=== PATIENT | male | born 1950 | race Caucasian/White ===

== ENCOUNTER → 2022-02-14 | Outpatient (CLI) | payer MEDICARE, SELFPAY | END | disposition home or self-care (01) | PROVIDERS: PCP Family Medicine; Referring Provider Internal Medicine Critical Care Medicine; Visit Provider Internal Medicine Critical Care Medicine | DX: R06.00 Dyspnea, unspecified (principal) ==

== ENCOUNTER → 2022-04-30 | Outpatient (CLI) | payer MEDICARE, SELFPAY ==
[2022-04-30 12:09] VITALS: PULSE 68; PULSE 73; PULSE 74; PULSE 82; PULSE 90; PULSE 91; PULSE 92; O2SAT 96; O2SAT 97; O2SAT 98
--- NOTE | 2022-05-01 11:01 | PCM.PSN.6M ---
PSN 6 Minute Walk Test 6 Minute Walk Test 6 Minute Walk Test: 6 Minute Walk Test PSN:6-Minute Walk Test Start: 04/30/22 12:09 Freq: Status: Active Protocol: RESP.6MINW Document 04/30/22 12:09 [facility] (Rec: 04/30/22 12:12 [facility] [id number]) 6 Minute Walk Test Date Performed 04/30/22 Time Performed 11:15 Height 5 ft 8 in Weight: 220 lb Weight in Pounds 220.[address]: Mendoza Lei Assistive device used: None Pre-test Oxygen Delivery Method Room Air Pulse Ox (%) 98 Pulse Rate (60-100 beats/min) 68 Dyspnea Jaime Scale (0-10) 1 1st minute Oxygen Delivery Method Room Air Pulse Ox (%) 97 Pulse Rate (60-100 beats/min) 74 Dyspnea Jaime Scale (0-10) 2 Number of Rests Taken 0 Reported Symptoms Increased Work of Breathing 2nd minute Oxygen Delivery Method Room Air Pulse Ox (%) 96 Pulse Rate (60-100 beats/min) 82 Dyspnea Jaime Scale (0-10) 2 Number of Rests Taken 0 Reported Symptoms Increased Work of Breathing 3rd minute Oxygen Delivery Method Room Air Pulse Ox (%) 96 Pulse Rate (60-100 beats/min) 90 Dyspnea Jaime Scale (0-10) 3 Number of Rests Taken 0 Reported Symptoms Increased Work of Breathing 4th minute Oxygen Delivery Method Room Air Pulse Ox (%) 96 Pulse Rate (60-100 beats/min) 92 Dyspnea Jaime Scale (0-10) 3 Number of Rests Taken 0 Reported Symptoms Increased Work of Breathing 5th minute Oxygen Delivery Method Room Air Pulse Ox (%) 97 Pulse Rate (60-100 beats/min) 91 Dyspnea Jaime Scale (0-10) 3 Number of Rests Taken 0 Reported Symptoms Increased Work of Breathing 6th minute Oxygen Delivery Method Room Air Pulse Ox (%) 96 Pulse Rate (60-100 beats/min) 92 Dyspnea Jaime Scale (0-10) 3 Number of Rests Taken 0 Reported Symptoms Increased Work of Breathing Post-test Oxygen Delivery Method Room Air Pulse Ox (%) 97 Pulse Rate (60-100 beats/min) 73 Dyspnea Jaime Scale (0-10) 1 Full Laps Walked 14 Partial Lap, Number of Tiles Walked 37 Total Distance Walked (ft) 863 Interpretation Interpretation: The patient ambulated 863 feet over the course of 6 minutes beginning on room air without any assistive devices. Pretesting oxygen saturation was noted to be 98% on room air. With ambulation, the bessie oxygen saturation was 96%. There was no significant exertional oxygen desaturation. Recommendations Recommendations: There is no indication for the use of supplemental oxygen at this time.
== END | disposition home or self-care (01) ==
PROVIDERS: PCP Family Medicine; Referring Provider Internal Medicine Critical Care Medicine; Visit Provider Internal Medicine Critical Care Medicine
DX: R06.00 Dyspnea, unspecified (principal)
CPT/HCPCS: 94618

== ENCOUNTER → 2022-08-11 | Outpatient (CLI) | payer MEDICARE, SELFPAY ==
[2022-08-11 16:18] LABS: Hematocrit 48.6 % (40-54); Hemoglobin 15.5 g/dL (13.0-16.5); Mean Corp Hgb Conc 31.9 g/dL (32-36); Mean Corpuscular Hgb 29.1 pg (27.0-32.0); Mean Corpuscular Volume 91.4 fL (80-94); Mean Platelet Vol. 12.7 fl (6.2-12.0); Platelet Count 157 K/mm3 (150-450); RBC Distribution Width CV 13.5 % (11.6-14.6); RBC Distribution Width SD 45.7 fl (35.1-43.9); Red Blood Count 5.32 M/mm3 (4.6-6.2); White Blood Count 10.1 K/mm3 (4.4-11.0)
[2022-08-11 16:42] LABS: BNP,B-Type NATRIURETIC PEPTIDE 61.9 pg/mL (0-100)
== END | disposition home or self-care (01) ==
LOC: LAB 15:40
PROVIDERS: PCP Family Medicine; Visit Provider Internal Medicine Cardiovascular Disease
DX: R06.02 Shortness of breath (principal); I25.10 Atherosclerotic heart disease of native coronary artery without angina pectoris
CPT/HCPCS: 36415; 83880; 85027

== ENCOUNTER → 2022-10-20 | Outpatient (CLI) | payer MEDICARE, SELFPAY ==
--- NOTE | 2022-10-20 13:10 | PFTCOMP ---
COMPLETE PULMONARY FUNCTION TEST INTERPRETATION Brief HPI: Patient is a 71-year-old male, currently under the care of myself, who presents to [facility] [place] for complete pulmonary function tests secondary to diagnosis of dyspnea. Respiratory therapist reports good effort and reproducible results. Interpretation: Forced expiration spirometry shows no large airways obstructive ventilatory defect with an FEV1 of 91% predicted. There is no significant bronchodilator response by strict ATS criteria. Spirograms are of good quality and plateau slowly, indicating slowly emptying areas of the lungs. The respiratory flow volume loop shows decreased expiratory flow rates at high lung volumes consistent with small airways obstruction. Lung volumes by body plethysmography show a normal total lung capacity at 5.39 L, 89% predicted. All other lung volumes are within normal limits. Diffusion capacity by carbon monoxide is normal at 107% predicted. The airway resistance is slightly elevated. No previous pulmonary function tests were available for review. Impression: Grossly normal pulmonary function test with some stigmata of small airways disease
== END | disposition home or self-care (01) ==
PROVIDERS: PCP Family Medicine; Referring Provider Internal Medicine Critical Care Medicine; Visit Provider Internal Medicine Critical Care Medicine
DX: R06.00 Dyspnea, unspecified (principal)
CPT/HCPCS: 94060; 94726; 94729

== ENCOUNTER 2023-06-11 18:19 | Observation (INO) | payer MEDICARE, SELFPAY ==
[2023-06-11 18:21] VITALS: BP 127/53; PULSE 65; RESP 16; TEMP 35.7; O2SAT 98; BMI 34.5
[2023-06-11 18:23] VITALS: BP 127/53; PULSE 65; RESP 16; TEMP 35.7; O2SAT 98
--- NOTE | 2023-06-11 19:10 | EKG12_ITS ---
Test Reason : CP Blood Pressure : / mmHG Vent. Rate : 065 BPM Atrial Rate : 065 BPM P-R Int : 162 ms QRS Dur : 092 ms QT Int : 424 ms P-R-T Axes : 000 061 079 degrees QTc Int : 440 ms Normal sinus rhythm Abnormal ECG Confirmed by CARMELITA ZENG MD ([id number]), manager editorial CARLOS BURDEN ([id number]) on 06/14/2023 6:39:28 AM Referred By: PL Confirmed By:CARMELITA ZENG MD
--- NOTE | 2023-06-11 19:11 | ED.VIS.CHEST ---
HPI History of Present Illness Chief Complaint: Chest Pain Informant: patient and spouse/S.O. Narrative Narrative: Patient presents with increasing chest pain and dyspnea with dyspnea on exertion. Patient states he had a heart attack and multiple stents between 2011 and 2013. He has not had a heart catheterization or stents since. He was having some more dyspnea and he talk to Dr. Isaacs in December at his last appointment. They were considering heart catheterization which patient was not sure of at the time. But he states the last 3 days he has been getting notably more dyspnea mostly dyspnea on exertion. His states he took out the garbage and when he came back he was obviously working to breathe. He was not sweaty. He was not nauseated. He did feel lightheaded. Patient states today he has been developing chest pain in the middle of his chest. He used to get this occasionally and it would just last for a minute or 2. This is lasting longer. He states it is kind of waxing and waning. He states it is really not there right now. It is not clearly exertional with the chest pain although the dyspnea is. Patient has seen tax technician but he denies any history of COPD. He has an albuterol inhaler to be used as needed but he is never felt the need to use it and he has not heard wheezing. He has not felt sick. No fevers chills or coughing. [facility] Medical History (Updated 06/11/23 @ 23:[address] Richy Manning MD) Abnormal PFTs (pulmonary function tests) Atherosclerosis of coronary artery of [place] heart without angina pectoris Atrial tachycardia Coronary artery disease COVID-19 CPAP (continuous positive airway pressure) dependence Dyslipidemia Dyspnea Essential (primary) hypertension Former smoker ICD (implantable cardioverter-defibrillator) in place Ischemic cardiomyopathy ERIK (obstructive sleep apnea) SOB (shortness of breath) STEMI (ST elevation myocardial infarction) (~2013) Home Medications acetaminophen 500 mg capsule 500 mg PO Q6H PRN fever or pain 02/03/22 [History Last Taken Unknown] aspirin 81 mg tablet,delayed release (Adult Low Dose Aspirin) 81 mg PO DAILY 02/03/22 [History Last Taken Unknown] nitroglycerin 0.4 mg sublingual tablet 0.4 mg sublingual Q5M PRN chest pain #25 tabs 08/11/22 [Rx Last Taken Unknown] spironolactone 25 mg tablet 12.5 mg (1/2 x 25 mg) PO DAILY #45 tabs 09/01/22 [Rx Last Taken Unknown] empagliflozin 10 mg tablet (Jardiance) 10 mg PO DAILY #90 tabs 12/24/22 [Rx Last Taken Unknown] carvedilol 6.25 mg tablet (Coreg) 6.25 mg PO BID #180 tabs 02/15/23 [Rx Last Taken Unknown] isosorbide mononitrate 30 mg tablet,extended release 24 hr 30 mg PO DAILY #90 tabs 02/15/23 [Rx Last Taken Unknown] atorvastatin 80 mg tablet 80 mg PO QHS #90 tabs 03/01/23 [Rx Last Taken Unknown] clopidogrel 75 mg tablet 75 mg PO DAILY #90 tabs 03/16/23 [Rx Last Taken Unknown] furosemide 20 mg tablet 20 mg PO QMWF weight gain #40 tabs 03/16/23 [Rx Last Taken Unknown] potassium chloride 10 mEq tablet,extended release(part/cryst) 5 meq (1/2 x 10 mEq) PO DAILY #45 tabs 03/16/23 [Rx Last Taken Unknown] sacubitril 49 mg-valsartan 51 mg tablet (Entresto) 1 tab PO BID #180 tabs 04/12/23 [Rx Last Taken Unknown] Allergy/AdvReac Type Severity Reaction Status Date / Time No Known Allergies Allergy Verified 06/11/23 18:20 Family History Brother Heart disease Diabetes Mother Diabetes Hypertension Father Myocardial infarction Surgical History History of coronary artery stent placement (~2013) History of left heart catheterization (~05/06/16) Hx of cholecystectomy S/P implantation of automatic cardioverter/defibrillator (AICD) (~06/21/14) Social History Smoking Status: Former smoker alcohol intake: current Alcohol type: beer details: occassional substance use type: does not use caffeine: Yes (occasionally) ROS ROS ED ROS Narrative A complete review of systems was performed and is negative except as documented in the history of present illness. Some specific details below. Constitutional: No recent fevers or chills. He does not have generalized ill feeling. EYE: No discharge, visual complaints, or pain. ENT: No difficulty swallowing. No swelling. No pain. No reflux symptoms. CV: See history of present illness. Respiratory: See history of present illness. GI: No abdominal pain. No nausea vomiting diarrhea. No blood in stool. : No frequency dysuria or hematuria. Musculoskeletal: No recent trauma. No pains. No swelling. Skin: No rash. Nondiaphoretic. Neuro: No weakness or numbness. Endocrine: No polyuria or polydipsia. EXAM Physical Exam Narrative Exam Narrative: CONSTITUTIONAL: Patient is nontoxic in appearance. The patient looks comfortable. Work of breathing looks normal. HEENT: No notable trauma. Mucous membranes moist. No sinus tenderness. No indication of pain with swallowing. EYES: No conjunctival injection. No proptosis. NECK:No JVD. No stridor. CARDIOVASCULAR: Regular rate. Regular rhythm. No notable murmur. No JVD. RESPIRATORY: No respiratory distress. Breathing is unlabored. No wheezes. No rhonchi. No rales. No pain with a deep breath. No chest wall tenderness noted. Despite his dyspnea history his lungs sound actually clear GASTROINTESTINAL: Not distended. Bowel sounds are normal. No tenderness. GENITOURINARY: No tenderness over the bladder. No CVA tenderness. MUSCULOSKELETAL: Atraumatic. No peripheral edema. No cord. No tenderness along the deep venous system. No asymmetry. No distended veins. NEUROLOGICAL: Patient is alert and appropriate. No focal deficit noted. SKIN: No noted rashes. No diaphoresis. PSYCHIATRIC: Patient is calm. Mood is appropriate. Const Vital Signs: 06/11/23 18:21 06/11/23 18:23 06/11/23 19:26 Temperature 96.3 F L 96.3 F L Temperature Source Temporal Temporal Pulse Rate 65 65 Respiratory Rate 16 16 Blood Pressure 127/53 H 127/53 H Blood Pressure Mean 77 77 Pulse Ox 98 98 99 Oxygen Delivery Method Room Air Room Air Room Air 06/11/23 19:26 06/11/23 21:00 Temperature Temperature Source Pulse Rate 59 L 60 Respiratory Rate 21 H 16 Blood Pressure 111/61 Blood Pressure Mean 77 Pulse Ox 99 97 Oxygen Delivery Method Room Air Room Air Heart Score History: Moderately Suspicious ECG: Nonspecific Repolarization Age: >/= 65 years Risk Factors: >/= 3 Risk Factors or History of CAD Troponin: </= Normal Limit Score: 6 MDM MDM MDM Narrative Medical decision making narrative: My independent interpretation of the patient's single view AP chest x-ray shows his pacer ICD but no acute process. Final reading is no acute cardiopulmonary process. CBC is overall normal. Electrolytes show no marked abnormalities. He does have a mild rise of his creatinine and chloride. Glucose is up only a bit at the 132. Troponin initially is 7. Repeat troponin is pending. Although the patient is not having pain now, EKG does not show STEMI and his troponin is negative, he has a heart score of 6. He has worsening symptoms over the last 3 days and now has developed chest pain. I think he is a high risk patient. I discussed case with hospitalist. Lab Data Attestation: I reviewed the patient's lab results. Labs: Laboratory Results - last 24 hr 06/11/23 06/11/23 18:39 21:00 WBC 9.4 RBC 5.48 Hgb 15.9 Hct 48.8 MCV 89.1 MCH 29.0 MCHC 32.6 RDW Std Deviation 43.9 RDW Coeff of Liss 13.5 Plt Count 154 MPV 12.9 H Immature Gran % (Auto) 0.400 Neut % (Auto) 67.4 Lymph % (Auto) 22.1 [place] % (Auto) 8.6 Eos % (Auto) 1.1 Baso % (Auto) 0.4 Absolute Neuts (auto) 6.3 Absolute Lymphs (auto) 2.08 Nucleated RBC % 0 Sodium 142 Potassium 3.8 Chloride 109 H Carbon Dioxide 28.0 Anion Gap 5 BUN 20 H Creatinine 1.35 H Estim Creat Clear Calc 59.26 Est GFR (MDRD) Af Amer 67 Est GFR (MDRD) Non-Af 55 L BUN/Creatinine Ratio 14.8 Glucose 132 H Calcium 9.2 Troponin I High Sens 7 9 Radiography Diagnostic Testing: Clinical Impression(s) from Imaging Studies Chest X-Ray 06/11/23 19:23 IMPRESSION: No acute pulmonary process Electronically Signed: Paul Salmeron MD at 19:36 EST Reading Location ID and State: [facility] / [place] , Service support , EKG Initial EKG: Comments: My independent interpretation of the patient's EKG shows a normal sinus rhythm with rate at 65. No ventricular ectopy. There are diffuse ST and T wave changes with poor anterior R wave and slight T wave inversion. No sign of acute ST elevation. MA interval, QRS duration and QTc is normal. I tried to compare this to an EKG from 11/05/2021. But it is a very poor copy on the computer. It does look similar but not exactly the same. Management Discussion w/another healthcare provider: Hospitalist Discharge Plan Dx/Rx/DC Orders Clinical Impression: Chest pain, Exertional dyspnea, History of CAD (coronary artery disease) Disposition Disposition: Acute Care Hospital [facility] Discharge Date/Time: 06/11/23 21:47
--- OUTSIDE RECORDS SUMMARY | 2023-06-11 19:13 | XMS RPT_ITS | CCD ---
Author Name Unknown Address [address] [place] [address] Organization [facility] Care Team Providers Care Group Art Supervisor Name Role Phone ALMA TREVINO Consulting Unavailable ALMA TREVINO Primary Care Unavailable ALMA TREVINO Attending Unavailable ALMA TREVINO Admitting Unavailable PROVIDER, UNKNOWN Consulting Unavailable PROVIDER, UNKNOWN Consulting Unavailable PROVIDER, UNKNOWN Consulting Unavailable ALMA TREVINO Consulting Unavailable ALMA TREVINO Primary Care Unavailable ALMA TREVINO Attending Unavailable ALMA TREVINO Admitting Unavailable PROVIDER, UNKNOWN Consulting Unavailable PROVIDER, UNKNOWN Consulting Unavailable PROVIDER, UNKNOWN Consulting Unavailable ALMA TREVINO Consulting Unavailable ROXANE RAMESH MD Primary Care Unavailabl e ROXANE RAMESH MD Attending Unavailabl e ROXANE RAMESH MD Admitting Unavailabl e PROVIDER, UNKNOWN Consulting Unavailable PROVIDER, UNKNOWN Consulting Unavailable PROVIDER, UNKNOWN Consulting Unavailable ALMA TREVINO Consulting Unavailable ROXANE RAMESH MD Primary Care Unavailabl e ROXANE RAMESH MD Attending Unavailabl e ROXANE RAMESH MD Admitting Unavailabl e PROVIDER, UNKNOWN Consulting Unavailable PROVIDER, UNKNOWN Consulting Unavailable PROVIDER, UNKNOWN Consulting Unavailable ALMA TREVINO Consulting Unavailable ROXANE RAMESH MD Primary Care Unavailabl e ALMA TREVINO Referring Unavailable ROXANE RAMESH MD Attending Unavailabl e ROXANE RAMESH MD Admitting Unavailabl e PROVIDER, UNKNOWN Consulting Unavailable PROVIDER, UNKNOWN Consulting Unavailable PROVIDER, UNKNOWN Consulting Unavailable ALMA TREVINO Consulting Unavailable ROXANE RAMESH MD Primary Care Unavailabl ROXANE Rosen MD Attending Unavailabl e ROXANE RAMESH MD Admitting Unavailabl e PROVIDER, UNKNOWN Consulting Unavailable PROVIDER, UNKNOWN Consulting Unavailable PROVIDER, UNKNOWN Consulting Unavailable Results Test Name Value Interpretation Reference Range Facil ity Encounters Encounter Date Encounter Type Care Provider Facility Start: 05-11-2022 End: 05-11-2022 ambulatory [facility] Start: 02-20-2022 End: 02-20-2022 ambulatory [facility] Start: 02-12-2022 End: 02-12-2022 ambulatory [facility] Start: 12-02-2021 ambulatory [facility] Start: 11-18-2021 End: 11-18-2021 ambulatory [facility] Start: 11-06-2021 End: 11-06-2021 ambulatory [facility] Payers Date Payer Category Payer Unknown [id number] [id number] [id number] 1950 Unknown [id number] 2.16.84 [id number] 1950 Unknown [id number] 2.16.84 [id number] 1950 Unknown [id number] 2.16.84 [id number] 1950 Unknown [id number] 2.16.84 [id number] 1950 Unknown [id number] 2.16.84 [id number] Medicare [id number] Summary Purpose Family History No Family History Records FoundNo Family History Records Found Advance Directives No Advanced Directives Records FoundNo Advanced Directives Records Found Additional Source Comments (unrecognized sect ion and content) No Status Records FoundNo Status Records Found INFORMATION SOURCE (unrecogn ized section and content) DATE CREATED AUTHOR AUTHOR'S ORGANIZ ATION 05/12/2022 [facility] FOR RECORDS PERTAINING TO PATIENTS WHO ARE OR HAVE BEEN ENROLLED IN A CHEMICAL DEPENDENCY/SUBSTANCEABUSE PROGRAM, SOME INFORMATION MAY BE OMITTED. This clinical summary was aggregated from multiple sources. Caution should be exercised in using it in the provision of clinical care. This summary normalizes information from multiple sources, and as a consequence, information in this document may materially change the coding, format and clinical context of patient data. In addition, data may be omitted in some cases. CLINICAL DECISIONS SHOULD BE BASED ON THE PRIMARY CLINICAL RECORDS. [facility], [facility]. provides no warranty or guarantee of the accuracy or completeness of information in this document.
--- NOTE | 2023-06-11 19:23 | RAD_ITS ---
STUDY: X-RAY CHEST REASON FOR EXAM: Male, 72 years old. chest pain TECHNIQUE: Single AP portable view of the chest. COMPARISON: None. FINDINGS: Satisfactory appearance of a left subclavian pacemaker The lungs are clear and expanded. There is no demonstrated pleural abnormality. Normal size heart. Normal mediastinum and sudeep. Normal visualized pulmonary arteries. Normal visualized aortic arch and descending thoracic aorta. There are diffuse degenerative changes of the visualized thoracic spine. Normal visualized ribs, clavicles, and shoulders. There is no demonstrated abnormality of the visualized soft tissue structures of the upper abdomen. RAD/Chest 1 View (Portable) IMPRESSION: No acute pulmonary process Electronically Signed: Paul Salmeron MD at 19:36 EST ,
[2023-06-11 19:26] VITALS: PULSE 59; RESP 21; O2SAT 99
[2023-06-11 19:31] LABS: Absolute Lymphocyte Count 2.08 X10^3/uL (0.83-4.51); Absolute Neutrophil Count 6.3 X10^3/uL (2.0-7.7); Basophil# 0.04 X10^3/uL; Basophil% 0.4 % (0-1); Eosinophils% 1.1 % (0-5); Hematocrit 48.8 % (40-54); Hemoglobin 15.9 g/dL (13.0-16.5); Lymphocyte # 2.08 X10^3/ul (0.83-4.51); Lymphocyte % 22.1 % (19-41); Mean Corp Hgb Conc 32.6 g/dL (32-36); Mean Corpuscular Volume 89.1 fL (80-94); Mean Platelet Vol. 12.9 fl (6.2-12.0); Monocyte# 0.81 X10^3/uL; Monocyte% 8.6 % (0-10); NRBC Flagged by Analyzer 0 % (0-5); Neutrophil # 6.34 X10^3/uL (2.7-7.7); Neutrophil % 67.4 % (47-70); Platelet Count 154 K/mm3 (150-450); RBC Distribution Width CV 13.5 % (11.6-14.6); RBC Distribution Width SD 43.9 fl (35.1-43.9); Red Blood Count 5.48 M/mm3 (4.6-6.2); White Blood Count 9.4 K/mm3 (4.4-11.0)
[2023-06-11 19:50] LABS: Anion Gap 5 (5-15); BUN 20 mg/dL (7-18); BUN/Creat Ratio 14.8 RATIO (10-20); Calcium,Total 9.2 mg/dL (8.5-10.1); Chloride 109 mmol/L (98-107); Creatinine, Serum 1.35 mg/dL (0.70-1.30); EST Glomerular Filtration Rate 55 mL/min (>60); Est Glom Filt Rate - Afr Amer 67 mL/min (>60); Estimated Creatinine Clearance 59.26 ml/min; Glucose 132 mg/dL (74-106); Potassium 3.8 mmol/L (3.5-5.1); Sodium Level 142 mmol/L (136-145); Troponin-I HS (w/2H Reflex) 7 pg/mL (3.0-78.0)
[2023-06-11 21:00] VITALS: BP 111/61; PULSE 60; RESP 16; O2SAT 97
--- NOTE | 2023-06-11 21:12 | HP.PCM_ITS ---
HPI - General General Date of Admission: 06/11/23 Date of Service: 06/11/23 Chief Complaint: chest pain HPI Narrative AUDREY CHAVARRIA, is a 72 M with a PMH as outlined who presents via the ED on 06/11/2023 with a complaitn of chest pain and worsening shortness of breath with exertion. He has a history of heart attack nad has had numerous caths and had stents placed; last cath was ~ 9 years ago. His symptoms, mainly the exertional shortness of breath has been going on for several months and has been worsening. He had seen his screen printing equipment setter on outpatient basis and his screen printing equipment setter recommended that he have a cardiac cath, but patient refused. His symptoms have been worsening, with associated exertional chest pain. He denies any nausea, vomiting, palpitations, dizziness or other symptoms. REview of systems is otherwise negative. Vitals in the ED were temp of 96.3F, LA of 59, RR of 21 nad BP of 127/53 at time of review. He was saturating at 99% on room air. CBC was unremarkable. BMP was significant for Cr of 1.35. CXR showed no acute cardiopulmonary activity. He is being admitted to be managed for chest pain to rule out ACS. Initial troponin was also negative. [facility] Medical History (Updated 06/11/23 @ 23:[address] Richy Manning MD) Abnormal PFTs (pulmonary function tests) Atherosclerosis of coronary artery of [place] heart without angina pectoris Atrial tachycardia Coronary artery disease COVID-19 CPAP (continuous positive airway pressure) dependence Dyslipidemia Dyspnea Essential (primary) hypertension Former smoker ICD (implantable cardioverter-defibrillator) in place Ischemic cardiomyopathy ERIK (obstructive sleep apnea) SOB (shortness of breath) STEMI (ST elevation myocardial infarction) (~2013) Home Medications acetaminophen 500 mg capsule 500 mg PO Q6H PRN fever or pain 02/03/22 [History Last Taken Unknown] aspirin 81 mg tablet,delayed release (Adult Low Dose Aspirin) 81 mg PO DAILY 02/03/22 [History Last Taken Unknown] nitroglycerin 0.4 mg sublingual tablet 0.4 mg sublingual Q5M PRN chest pain #25 tabs 08/11/22 [Rx Last Taken Unknown] spironolactone 25 mg tablet 12.5 mg (1/2 x 25 mg) PO DAILY #45 tabs 04/04/23 [Rx Last Taken Unknown] empagliflozin 10 mg tablet (Jardiance) 10 mg PO DAILY #90 tabs 12/24/22 [Rx Last Taken Unknown] carvedilol 6.25 mg tablet (Coreg) 6.25 mg PO BID #180 tabs 02/15/23 [Rx Last Taken Unknown] isosorbide mononitrate 30 mg tablet,extended release 24 hr 30 mg PO DAILY #90 tabs 02/15/23 [Rx Last Taken Unknown] atorvastatin 80 mg tablet 80 mg PO QHS #90 tabs 03/01/23 [Rx Last Taken Unknown] clopidogrel 75 mg tablet 75 mg PO DAILY #90 tabs 03/16/23 [Rx Last Taken Un known] furosemide 20 mg tablet 20 mg PO QMWF weight gain #40 tabs 03/16/23 [Rx Last Taken Unknown] potassium chloride 10 mEq tablet,extended release(part/cryst) 5 meq (1/2 x 10 mEq) PO DAILY #45 tabs 03/16/23 [Rx Last Taken Unknown] sacubitril 49 mg-valsartan 51 mg tablet (Entresto) 1 tab PO BID #180 tabs 04/12/23 [Rx Last Taken Unknown] Allergy/AdvReac Type Severity Reaction Status Date / Time No Known Allergies Allergy Verified 06/11/23 18:20 Family History Brother Heart disease Diabetes Mother Diabetes Hypertension Father Myocardial infarction Surgical History History of coronary artery stent placement (~2013) History of left heart catheterization (~05/06/16) Hx of cholecystectomy S/P implantation of automatic cardioverter/defibrillator (AICD) (~06/21/14) Social History Smoking Status: Former smoker alcohol intake: current Alcohol type: beer details: occassional substance use type: does not use caffeine: Yes (occasionally) ROS Review of Systems ROS Unobtainable: Denies due to encephalopathy Constitutional Constitutional: Denies anorexia, chills, fatigue, fever(s), malaise or weakness Eyes Eyes: Denies change in vision ENT HEENT: Denies headache(s), loss taste/smell, nasal congestion or sore throat Cardiovascular Cardiovascular: Denies chest pain, edema, orthopnea, palpitations or paroxysmal nocturnal dyspnea Respiratory/Chest Respiratory/Chest: Denies cough, shortness of breath at rest or shortness of breath with exertion Gastrointestinal Gastrointestinal: Denies abdominal pain, constipation, diarrhea, nausea or vomiting Neurologic Neurologic: Denies confusion, dizziness, focal weakness or headache(s) Psychiatric Psychiatric: Denies anxiety or depression Endocrine Endocrinology: Denies change in body appearance Hematologic/Lymphatic Hematologic/Lymphatic: Denies anemia Vital Signs Vital Signs Vital Signs: 06/11/23 18:21 06/11/23 18:23 06/11/23 19:26 Temperature 96.3 F L 96.3 F L Temperature Source Temporal Temporal Pulse Rate 65 65 Respiratory Rate 16 16 Blood Pressure 127/53 H 127/53 H Blood Pressure Mean 77 77 Pulse Ox 98 98 99 Oxygen Delivery Method Room Air Room Air Room Air 06/11/23 19:26 Temperature Temperature Source Pulse Rate 59 L Respiratory Rate 21 H Blood Pressure Blood Pressure Mean Pulse Ox 99 Oxygen Delivery Method Room Air Weight Weight: 227 lb 4.745 oz Body Mass Index (BMI) 34.5 Physical Exam Const alert, oriented x3 and no apparent distress General Appearance: cooperative and well developed Orientation / Consciousness: confused HEENT normocephalic, head/scalp atraumatic and moist oral mucous membranes Eyes PERRL and EOMs intact bilaterally Neck no lymphadenopathy and supple Lymph Lymphatic: no lymphadenopathy noted Resp normal respiratory effort, normal air movement and clear to auscultation bilaterally Cardio regular rate, regular rhythm, S1 normal heart sound and S2 normal heart sound GI normal to inspection, nondistended, normoactive bowel sounds, soft to palpation and non-tender Extremity normal capillary refill, no clubbing, cyanosis or edema and no calf tenderness General Extremity: no tenderness to palpation of joints or extremities Skin General Skin Exam: no breakdown Neuro CN's II-XII intact bilaterally, no focal motor deficits and no sensory deficits noted Motor Exam: strength 5/5 throughout and general weakness Psych thought process normal and cooperative Appearance: appropriate Results Lab / Micro Data 06/12/23 02:07 06/12/23 02:07 Labs: Laboratory Results - last 24 hr 06/11/23 18:39: WBC 9.4, RBC 5.48, Hgb 15.9, Hct 48.8, MCV 89.1, MCH 29.0, MCHC 32.6, RDW Std Deviation 43.9, RDW Coeff of Liss 13.5, Plt Count 154, MPV 12.9 H, Immature Gran % (Auto) 0.400, Neut % (Auto) 67.4, Lymph % (Auto) 22.1, [place] % (Auto) 8.6, Eos % (Auto) 1.1, Baso % (Auto) 0.4, Absolute Neuts (auto) 6.3, Absolute Lymphs (auto) 2.08, Nucleated RBC % 0, Sodium 142, Potassium 3.8, Chloride 109 H, Carbon Dioxide 28.0, Anion Gap 5, BUN 20 H, Creatinine 1.35 H, Estim Creat Clear Calc 59.26, Est GFR (MDRD) Af Amer 67, Est GFR (MDRD) Non-Af 55 L, BUN/Creatinine Ratio 14.8, Glucose 132 H, Calcium 9.2, Troponin I High Sens 7 Imagaing Radiology Impression Chest X-Ray 06/11/23 19:23 IMPRESSION: No acute pulmonary process Electronically Signed: Paul Salmeron MD at 19:36 EST Reading Location ID and State: [address] [place] [address] , Service support , Assessment & Plan Assessment/Plan (1) Chest pain: PLAN: Plan #Chest pain to rule out ACS * admit to PCU * has been having chest pain and exertional dyspnea for several months. His screen printing equipment setter recommended cardiac cath back in October 2022, but patient refused then. Symptoms have progressively gotten worse. * has a history of CAD s/p stents * EKG showed no acute ST changes and initial troponin is negative. * cycle troponins * PO aspirin, high intensity statin and plavix * get 2D echo tomorrow * Discussed with cardiology; per discussion, cardiology thinks he will likely need a cardiac cath. Cardiology therefore consulted. * #CAD s/p stents: on aspirin, plavix and high intensity statin as well as carvedilol #HFrEF: on Jardiance and entresto. On spironolactone also. #History of arrhythmia: s/p ICD. #Benign essential hypertension: on spironolactone and carvedilol. Also on entresto. #Hyperlipidemia: on statin DVT prophylaxis: lovenox COde status: full code * Patient and counseled extensively about different types of CODE STATUS in cluding full code, DNR CCA and DNR CCA. Patient elects to be full code. Total [id number] time 17 minutes. * Total time spent on evaluation and management of patient, reviewing chart and specialist notes, discussing plan with patient and his , discussion with nursing and ancillary staff as well as documentation: 56 mins Charges/Coding Visit Charges Inpatient E&M: 17549 Init Hosp L2 Procedures Hospitalists Procedures: 51395 Advncd Care Plan 30 Min
[2023-06-11 21:28] LABS: Reflex Troponin-HS? (from REC) Y
--- OUTSIDE RECORDS SUMMARY | 2023-06-11 21:35 | XMS RPT_ITS | CCD ---
Author Name Unknown Address [address] [place] [address] Organization [facility] Care Team Providers Care Rx Specialist Name Role Phone [employer] Unavailable [...] Provider Facility Start: 05-11-2022 End: 05-11-2022 ambulatory [facility] Start: 02-20-2022 End: 02-20-2022 ambulatory [facility] Start: 02-12-2022 End: 02-12-2022 ambulatory [facility] Start: 12-02-[address] [facility] Start: 11-18-2021 End: 11-18-2021 ambulatory [facility] Start: 11-06-2021 End: 11-06-2021 ambulatory [facility] Payers Date Payer Category Payer Unknown [id number] 2.16.84 [id number] 1950 Unknown [id number] 2.16.84 [id number] 1950 Unknown [id number] 2.16.84 [id number] 1950 Unknown [id number] 2.16.84 [id number] 1950 Unknown [id number] 2.16.84 [id number] 1950 Unknown [id number] 2.16.84 [id number] Medicare [id number] Summary Purpose Family History No Family History Records FoundNo Family History Records Found Advance Directives No Advanced Directives Records FoundNo Advanced Directives Records Found Additional Source Comments (unrecognized sect ion and content) No Status Records FoundNo Status Records Found INFORMATION SOURCE (unrecogn ized section and content) DATE CREATED AUTHOR AUTHOR'S ORGANIZ ATION 05/12/2022 [facility] FOR RECORDS PERTAINING TO PATIENTS WHO [...] BE BASED ON THE PRIMARY CLINICAL RECORDS. [facility], [facility]. provides no warranty or guarantee of the accuracy or completeness of information in this document.
[2023-06-11 21:40] VITALS: BP 113/55; PULSE 61; RESP 16; O2SAT 97
[2023-06-11 21:55] LABS: Troponin-I HS 9 pg/mL (3.0-78.0)
--- OUTSIDE RECORDS SUMMARY | 2023-06-11 22:02 | XMS RPT_ITS | CCD ---
Author Name Unknown Address [address] [place] [address] Organization [facility] Care Team Providers Care Log Buyer Name Role Phone [employer] Unavailable [...] Provider Facility Start: 05-11-2022 End: 05-11-2022 ambulatory [facility] Start: 02-20-2022 End: 02-20-2022 ambulatory [facility] Start: 02-12-2022 End: 02-12-2022 ambulatory [facility] Start: 12-02-2021 ambulatory [facility] Start: 11-18-2021 End: 11-18-2021 ambulatory [facility] Start: 11-06-2021 End: 11-06-2021 ambulatory [facility] Payers Date Payer Category Payer Unknown [id number] 2.16.84 [id number] 1950 Unknown [id number] 2.16.84 [id number] 1950 Unknown [id number] 2.16.84 [id number] 1950 Unknown [id number] 2.16.84 [id number] 1950 Unknown [id number] 2.16.84 [id number] 1950 Unknown [id number] 2.16.84 [id number] Medicare [id number] Summary Purpose Family History No Family History Records FoundNo Family History Records Found Advance Directives No Advanced Directives Records FoundNo Advanced Directives Records Found Additional Source Comments (unrecognized sect ion and content) No Status Records FoundNo Status Records Found INFORMATION SOURCE (unrecogn ized section and content) DATE CREATED AUTHOR AUTHOR'S ORGANIZ ATION 05/12/2022 [facility] FOR RECORDS PERTAINING TO PATIENTS WHO [...] THE PRIMARY CLINICAL RECORDS. [facility], [facility]. provides no warranty or guarantee of the accuracy or completeness of information in this document.
[2023-06-11 22:30] VITALS: BMI 34.1
[2023-06-11 22:31] VITALS: BP 113/79; PULSE 62; RESP 16; TEMP 36.7; O2SAT 97
--- NOTE | 2023-06-11 22:45 | EKG12_ITS ---
Test Reason : Blood Pressure : / mmHG Vent. Rate : 060 BPM Atrial Rate : 060 BPM P-R Int : 272 ms QRS Dur : 078 ms QT Int : 382 ms P-R-T Axes : 000 028 053 degrees QTc Int : 382 ms Atrial-paced rhythm with prolonged AV conduction Anteroseptal infarct , age undetermined Abnormal ECG When compared with ECG of 11-JUN-2023 22:48, MANUAL COMPARISON REQUIRED, DATA IS UNCONFIRMED Confirmed by KARRI STEWARD, CARMELITA ([id number]), news videotape editor HERRERA DAN ([id number]) on 06/14/2023 9:41:26 AM Referred By: Confirmed By:CARMELITA ZENG MD
[2023-06-11] MEDS: 0.9% Normal Saline (1000mL) 1,000 ML 125 ML IV (23:35)
[2023-06-12 01:37] LABS: Troponin-I HS 11 pg/mL (3.0-78.0)
[2023-06-12 02:16] LABS: Absolute Lymphocyte Count 1.98 X10^3/uL (0.83-4.51); Absolute Neutrophil Count 5.5 X10^3/uL (2.0-7.7); Basophil# 0.03 X10^3/uL; Basophil% 0.4 % (0-1); Eosinophils% 1.2 % (0-5); Hematocrit 45.9 % (40-54); Hemoglobin 15.1 g/dL (13.0-16.5); Lymphocyte # 1.98 X10^3/ul (0.83-4.51); Lymphocyte % 23.4 % (19-41); Mean Corp Hgb Conc 32.9 g/dL (32-36); Mean Corpuscular Hgb 29.3 pg (27.0-32.0); Mean Platelet Vol. 12.3 fl (6.2-12.0); Monocyte# 0.79 X10^3/uL; Monocyte% 9.3 % (0-10); NRBC Flagged by Analyzer 0 % (0-5); Neutrophil # 5.53 X10^3/uL (2.7-7.7); Neutrophil % 65.5 % (47-70); Platelet Count 127 K/mm3 (150-450); RBC Distribution Width CV 13.6 % (11.6-14.6); RBC Distribution Width SD 44.2 fl (35.1-43.9); Red Blood Count 5.16 M/mm3 (4.6-6.2); White Blood Count 8.5 K/mm3 (4.4-11.0)
[2023-06-12 02:32] LABS: Anion Gap 7 (5-15); BUN 18 mg/dL (7-18); BUN/Creat Ratio 15.5 RATIO (10-20); Calcium,Total 8.6 mg/dL (8.5-10.1); Chloride 114 mmol/L (98-107); Creatinine, Serum 1.16 mg/dL (0.70-1.30); EST Glomerular Filtration Rate 66 mL/min (>60); Est Glom Filt Rate - Afr Amer 80 mL/min (>60); Estimated Creatinine Clearance 68.52 ml/min; Glucose 139 mg/dL (74-106); Potassium 3.8 mmol/L (3.5-5.1); Sodium Level 144 mmol/L (136-145)
[2023-06-12 02:36] LABS: BNP,B-Type NATRIURETIC PEPTIDE 50.4 pg/mL (0-100)
[2023-06-12 03:48] VITALS: BP 118/68; PULSE 63; RESP 16; TEMP 36.6; O2SAT 95
--- NOTE | 2023-06-12 05:55 | ECHOCS_ITS ---
Reason For Study: Chest Pain Procedure This was a 2D Doppler, Color Flow transthoracic echocardiogram. The study was technically difficult. Contrast injection was performed. Exam performed portable in patient room. Left Ventricle Moderately dilated left ventricle. The estimated ejection fraction is 35 %. Moderately severe segmental systolic dysfunction (see wall motion). Anterior [place] : Akinetic. [place] : Akinetic. Right Ventricle Normal RV size. ICD or pacer leads identified within the right ventricle. Normal systolic function. Atria The left atrium is mildly enlarged. Normal right atrium. Mitral Valve Normal mitral valve. Mild (1+) eccentric mitral valve insufficiency. Tricuspid Valve Normal tricuspid valve. Mild (1+) tricuspid valve insufficiency. Pulmonary artery systolic pressure is 26 mmHg. Pulmonic Valve Normal pulmonic valve. Great Vessels Normal aortic root. The pulmonary is not well visualized. Normal inferior vena cava. Pericardium/Pleural No pericardial effusion. Medication Diluted definity 2ml given slow IV push to enhance endocardial definition. MMode/2D Measurements & Calculations LVIDd: 6.2 cm IVSd: 0.48 cm LA dimension: 4.3 cm LVIDs: 5.0 cm LVPWd: 0.73 cm FS: 19.8 % LAV(MOD-bp): 79.2 ml LVAd ap4: 51.1 cm2 SV(MOD-sp4): 84.1 ml LAV(MOD-bp) Indexed: 36.9 ml/m2 LVLd ap4: 9.8 cm LAV(MOD-sp2): 70.4 ml EDV(MOD-sp4): 224.7 ml LAV(MOD-sp4): 75.2 ml EDV(sp4-el): 227.0 ml LVAs ap4: 37.6 cm2 LVLs ap4: 8.6 cm ESV(MOD-sp4): 140.5 ml ESV(sp4-el): 139.1 ml EF(MOD-sp4): 37.4 % EF(sp4-el): 38.7 % SV(sp4-el): 87.9 ml LA A4 area: 24.8 cm2 Doppler Measurements & Calculations Lat Peak E' Ehsan: 10.2 cm/sec Med Peak E' Ehsan: 8.4 cm/sec Ao V2 max: 140.1 cm/sec Ao max P.9 mmHg Ao V2 mean: 98.9 cm/sec Ao mean P.4 mmHg Ao V2 VTI: 37.4 cm AV (velocity ratio): 0.70 LV V1 max: 101.1 cm/sec PA V2 max: 82.7 cm/sec TR max ehsan: 240.4 cm/sec LV V1 max P.1 mmHg PA V2 mean: 61.1 cm/sec TR max P.1 mmHg LV V1 mean P.5 mmHg LV V1 mean: 74.9 cm/sec LV V1 VTI: 26.1 cm ECHO/Echo Complete W/ Contrast Interpretation Summary Moderately dilated left ventricle. The estimated ejection fraction is 35 %. Moderately severe segmental systolic dysfunction (see wall motion). Contrast injection was performed. Ordering Physician: Marleny Garcia Referring Physician: Mario Seo Performed By: Brodwolf, Sesar, RCS
--- NOTE | 2023-06-12 05:55 | EKG12_ITS ---
Test Reason : CP ADMIT Blood Pressure : / mmHG Vent. Rate : 060 BPM Atrial Rate : 060 BPM P-R Int : 250 ms QRS Dur : 098 ms QT Int : 322 ms P-R-T Axes : -24 027 072 degrees QTc Int : 322 ms Atrial-paced rhythm with prolonged AV conduction Anterior infarct , age undetermined Abnormal ECG When compared with ECG of 11-JUN-2023 18:27, MANUAL COMPARISON REQUIRED, DATA IS UNCONFIRMED Confirmed by KARRI STEWARD, CARMELITA ([id number]), news copy editor HERRERA DAN ([id number]) on 06/14/2023 9:44:54 AM Referred By: KYLAH Confirmed By:CARMELITA ZENG MD
[2023-06-12] MEDS: 0.9% Normal Saline (1000mL) 1,000 ML 125 ML IV (06:31)
--- NOTE | 2023-06-12 08:14 | PN.HOSP_ITS ---
Reason for Visit Reason for Visit: Diagnoses Chest pain, unspecified (06/11/23) Subjective Subjective Patient is a 72-year-old gentleman with past medical history seen for coronary artery disease with previous PCI with stent who presented with exertional chest pain. An assessment of unstable angina made admitted to monitored bed treatment subsequently initiated per protocol with consultation placed to cardiology Objective Data Objective Data Vital Signs: Vital Signs Temp Pulse Resp BP Pulse Ox O2 Del Method 97.8 F 63 16 118/68 95 Room Air 06/12/23 03:48 06/12/23 03:48 06/12/23 03:48 06/12/23 03:48 06/12/23 03:48 06/12/23 03:48 Oxygen Delivery Method Room Air Weight: 101.8 kg Body Mass Index (BMI) 34.1 Intake & Output: Intake and Output for Last 24 Hours 06/10/23 06/11/23 06/12/23 23:59 23:59 23:59 Intake Total 866.67 / 866.67 Balance 866.67 / 866.67 Lab / Micro Data 06/12/23 02:07 06/12/23 02:07 Labs: Laboratory Results - last 24 hr 06/11/23 18:39: WBC 9.4, RBC 5.48, Hgb 15.9, Hct 48.8, MCV 89.1, MCH 29.0, MCHC 32.6, RDW Std Deviation 43.9, RDW Coeff of Liss 13.5, Plt Count 154, MPV 12.9 H, Immature Gran % (Auto) 0.400, Neut % (Auto) 67.4, Lymph % (Auto) 22.1, [place] % (Auto) 8.6, Eos % (Auto) 1.1, Baso % (Auto) 0.4, Absolute Neuts (auto) 6.3, Absolute Lymphs (auto) 2.08, Nucleated RBC % 0, Sodium 142, Potassium 3.8, Chloride 109 H, Carbon Dioxide 28.0, Anion Gap 5, BUN 20 H, Creatinine 1.35 H, Estim Creat Clear Calc 59.26, Est GFR (MDRD) Af Amer 67, Est GFR (MDRD) Non-Af 55 L, BUN/Creatinine Ratio 14.8, Glucose 132 H, Calcium 9.2, Troponin I High Sens 7 06/11/23 21:00: Troponin I High Sens 9 06/12/23 00:32: Troponin I High Sens 11 06/12/23 02:07: WBC 8.5, RBC 5.16, Hgb 15.1, Hct 45.9, MCV 89.0, MCH 29.3, MCHC 32.9, RDW Std Deviation 44.2 H, RDW Coeff of Liss 13.6, Plt Count 127 L, MPV 12.3 H, Immature Gran % (Auto) 0.200, Neut % (Auto) 65.5, Lymph % (Auto) 23.4, [place] % (Auto) 9.3, Eos % (Auto) 1.2, Baso % (Auto) 0.4, Absolute Neuts (auto) 5.5, Absolute Lymphs (auto) 1.98, Nucleated RBC % 0, Sodium 144, Potassium 3.8, Chloride 114 H, Carbon Dioxide 23.0, Anion Gap 7, BUN 18, Creatinine 1.16, Estim Creat Clear Calc 68.52, Est GFR (MDRD) Af Amer 80, Est GFR (MDRD) Non-Af 66, BUN/Creatinine Ratio 15.5, Glucose 139 H, Calcium 8.6, B-Natriuretic Peptide 50.4 Radiography Diagnostic Testing: Radiology Impression Chest X-Ray 06/11/23 19:23 IMPRESSION: No acute pulmonary process Electronically Signed: Paul Salmeron MD at 19:36 EST Reading Location ID and State: [address] [place] [address] , Service support , Physical Exam Narrative GENERAL: cooperative HEENT: Atraumatic; normocephalic EYES; Anicteric, Normal Conjunctiva NECK; supple, normal thyroid, RESPIRATORY: Diminished to auscultation CARDIOVASCULAR: Regular S1 S2, GI: soft, normoactive bowel sounds, : No Renal angle tenderness; EXTREMITIES: No edema, no clubbing, MUSCULOSKELETAL: no muscle wasting NEURO: Awake; no lateralizing signs. SKIN: No Rash PSYCH; Flat affect Assessment & Plan Assessment/Plan (1) Chest pain: PLAN: Plan Patient is a 72-year-old gentleman with past medical history seen for coronary artery disease with previous PCI with stent who presented with exertional chest pain. An assessment of unstable angina made admitted to monitored bed treatment subsequently initiated per protocol with consultation placed to cardiology #Chest pain to rule out ACS * admit to PCU * has been having chest pain and exertional dyspnea for several months. His order department supervisor recommended cardiac cath back in October 2022, but patient refused then. Symptoms have progressively gotten worse. * has a history of CAD s/p stents * EKG showed no acute ST changes and initial troponin is negative. * cycle troponins * PO aspirin, high intensity statin and plavix * get 2D echo tomorrow * Discussed with cardiology; per discussion, cardiology thinks he will likely need a cardiac cath. Cardiology therefore consulted. * #CAD s/p stents: on aspirin, plavix and high intensity statin as well as carvedilol #HFrEF: on Jardiance and entresto. On spironolactone also. #History of arrhythmia: s/p ICD. #Benign essential hypertension: on spironolactone and carvedilol. Also on entresto. #Hyperlipidemia: on statin DVT prophylaxis: lovenox COde status: full code * Patient and counseled extensively about different types of CODE STATUS including full code, DNR CCA and DNR CCA. Patient elects to be full code. Total [id number] time 17 minutes. * Total time spent on evaluation and management of patient, reviewing chart and specialist notes, discussing plan with patient and his , discussion with nursing and ancillary staff as well as documentation: 56 mins
[2023-06-12 09:18] VITALS: BP 108/49; PULSE 57; RESP 16; TEMP 36.7; O2SAT 98
--- NOTE | 2023-06-12 11:35 | PCM.CONS.C ---
Assessment & Plan Assessment/Plan (1) Exertional dyspnea: PLAN: He does present with exertional dyspnea. This could very well be an anginal equivalent. He was seen by his primary crane helper who suggested pulmonary evaluation and function tests and to follow-up echo was negative with a cardiac catheterization. He now presents with the symptomatology and my recommendation is to proceed with a left heart catheterization. Risk benefits alternatives of been explained to him he understands and agrees to proceed. (2) History of CAD (coronary artery disease): PLAN: He does have evidence of coronary artery disease as noted above. The plan will be to pursue a left heart catheterization. (3) Ischemic cardiomyopathy: PLAN: He does have evidence of ischemic cardiomyopathy. An echocardiogram performed this morning demonstrated segmental wall motion abnormalities involving the anterior wall and apex which were akinetic estimated ejection fraction of 35%. He currently is on guideline directed medical therapy with beta-danae, ARNI, spironolactone, and these can be titrated on as appropriate. He is also on an SGLT2 inhibitor. (4) ICD (implantable cardioverter-defibrillator) in place: PLAN: He does have an implantable defibrillator in place. This has been interrogated through our device clinic and is noted to be functioning well. (5) Essential (primary) hypertension: PLAN: Blood pressure is under good control at this time I would not recommend that we make any changes. (6) Dyslipidemia: PLAN: He does have a history of dyslipidemia. He will remain on high intensity statin. Thank you for allowing me to participate in the care of your patient. Please don't hesitate to call if any issues arise. HPI Consult Data Date of Consult: 06/14/23 HPI Narrative HPI Narrative: AUDREY CHAVARRIA, is a 72 M who presents to the emergency complaining of worsening shortness of breath especially with exertion. He is a patient with a history of known coronary artery disease status post cardiac catheterization in 2013 with an anterior myocardial infarction for which she underwent placement of a 2.5 x 38 mm drug-eluting stent following aspiration thrombectomy to the LAD. He subsequently presented in October 2013 for a follow-up cardiac catheterization and received a 2.25 Promus drug-eluting stent to the first obtuse marginal branch and in February of the same year had a repeat cardiac catheterization and needed a 2.25 x 28 exercise drug-eluting stent to the mid LAD. He had presented with progressive shortness of breath and was seen Dr. Isaacs as a follow-up patient from [place]. He had been seen by him and he had recommended a cardiac catheterization due to his progressive shortness of breath but patient declined. He subsequently has been having more shortness of breath and is presenting for further evaluation and management. A previous stress test that demonstrated a fixed anterior anteroseptal and apical perfusion defect. He also had evidence of ischemic cardiomyopathy and underwent placement of a dual-chamber implantable defibrillator in 2014 with a [employer] and [employer]. He follows up in pacemaker clinic. He denies any chest pain per se no paroxysmal nocturnal dyspnea and no arrhythmias. No defibrillator discharge and no syncope. [facility] Medical History (Updated 06/11/23 @ 23:[address] Richy Manning MD) Abnormal PFTs (pulmonary function tests) Atherosclerosis of coronary artery of [place] heart without angina pectoris Atrial tachycardia Coronary artery disease COVID-19 CPAP (continuous positive airway pressure) dependence Dyslipidemia Dyspnea Essential (primary) hypertension Former smoker ICD (implantable cardioverter-defibrillator) in place Ischemic cardiomyopathy ERIK (obstructive sleep apnea) SOB (shortness of breath) STEMI (ST elevation myocardial infarction) (~2013) Home Medications acetaminophen 500 mg capsule 500 mg PO Q6H PRN fever or pain 02/03/22 [History Last Taken Unknown] aspirin 81 mg tablet,delayed release (Adult Low Dose Aspirin) 81 mg PO DAILY 02/03/22 [History Last Taken Unknown] nitroglycerin 0.4 mg sublingual tablet 0.4 mg sublingual Q5M PRN chest pain #25 tabs 08/11/22 [Rx Last Taken Unknown] spironolactone 25 mg tablet 12.5 mg (1/2 x 25 mg) PO DAILY #45 tabs 09/01/22 [Rx Last Taken Unknown] empagliflozin 10 mg tablet (Jardiance) 10 mg PO DAILY #90 tabs 12/24/22 [Rx Last Taken Unknown] carvedilol 6.25 mg tablet (Coreg) 6.25 mg PO BID #180 tabs 02/15/23 [Rx Last Taken Unknown] isosorbide mononitrate 30 mg tablet,extended release 24 hr 30 mg PO DAILY #90 tabs 02/15/23 [Rx Last Taken Unknown] atorvastatin 80 mg tablet 80 mg PO QHS #90 tabs 03/01/23 [Rx Last Taken Unknown] clopidogrel 75 mg tablet 75 mg PO DAILY #90 tabs 03/16/23 [Rx Last Taken Unknown] furosemide 20 mg tablet 20 mg PO QMWF weight gain #40 tabs 03/16/23 [Rx Last Taken Unknown] potassium chloride 10 mEq tablet,extended release(part/cryst) 5 meq (1/2 x 10 mEq) PO DAILY #45 tabs 03/16/23 [Rx Last Taken Unknown] sacubitril 49 mg-valsartan 51 mg tablet (Entresto) 1 tab PO BID #180 tabs 04/12/23 [Rx Last Taken Unknown] Allergy/AdvReac Type Severity Reaction Status Date / Time No Known Allergies Allergy Verified 06/11/23 18:20 Family History Brother Heart disease Diabetes Mother Diabetes Hypertension Father Myocardial infarction Surgical History History of coronary artery stent placement (~2013) History of left heart catheterization (~05/06/16) Hx of cholecystectomy S/P implantation of automatic cardioverter/defibrillator (AICD) (~06/21/14) Social History Smoking Status: Former smoker alcohol intake: current Alcohol type: beer details: occassional substance use type: does not use caffeine: Yes (occasionally) Physical Exam Const alert, oriented x3 and no apparent distress General Appearance: cooperative HEENT hearing grossly normal bilaterally Head and Scalp: atraumatic Eyes EOMs intact bilaterally Neck General: normal visual inspection Chest inspection of chest normal and palpation of chest normal Resp normal respiratory effort Auscultation: clear to auscultation bilaterally Cardio regular rate, regular rhythm, S1 normal heart sound and S2 normal heart sound Jugular Venous Distention: JVD GI normal to inspection, nondistended, normoactive bowel sounds Extremity normal capillary refill and no pedal edema Peripheral Pulses: Yes pulses 2+ throughout and femoral pulses present Skin no rashes or lesions noted Neuro oriented x3 and CN's II-XII intact bilaterally Psych Appearance: grossly normal and appropriate Risk Stratification Risk Stratification Applicable: Yes Age >/= 65: Yes >/= 3 CAD Risk Factors (HTN, HLD, DM, family hx of CAD, or current smoker): Yes Aspirin Use in the Past 7 Days: Yes Severe Angina (>/= episodes in 24 hours): No EKG ST Changes >/= 0.5mm: No Positive Cardiac Marker: No RACHEL Risk Stratification Score: 3 RACHEL % Risk: 13% Risk Objective Data Vital Signs: Vital Signs Temp Pulse Resp BP Pulse Ox O2 Del Method 98.1 F 57 L 16 108/49 L 98 Room Air 06/12/23 09:18 06/12/23 09:18 06/12/23 09:18 06/12/23 09:18 06/12/23 09:18 06/12/23 10:00 Oxygen Delivery Method Room Air Weight: 224 lb 6.889 oz Body Mass Index (BMI) 34.1 Intake & Output: Intake and Output for Last 24 Hours 06/10/23 06/11/23 06/12/23 23:59 23:59 23:59 Intake Total 866.67 / 866.67 Balance 866.67 / 866.67 Lab / Micro Data 06/14/23 05:05 06/14/23 05:05 Labs: Laboratory Results - last 24 hr 06/11/23 18:39: WBC 9.4, RBC 5.48, Hgb 15.9, Hct 48.8, MCV 89.1, MCH 29.0, MCHC 32.6, RDW Std Deviation 43.9, RDW Coeff of Liss 13.5, Plt Count 154, MPV 12.9 H, Immature Gran % (Auto) 0.400, Neut % (Auto) 67.4, Lymph % (Auto) 22.1, [place] % (Auto) 8.6, Eos % (Auto) 1.1, Baso % (Auto) 0.4, Absolute Neuts (auto) 6.3, Absolute Lymphs (auto) 2.08, Nucleated RBC % 0, Sodium 142, Potassium 3.8, Chloride 109 H, Carbon Dioxide 28.0, Anion Gap 5, BUN 20 H, Creatinine 1.35 H, Estim Creat Clear Calc 59.26, Est GFR (MDRD) Af Amer 67, Est GFR (MDRD) Non-Af 55 L, BUN/Creatinine Ratio 14.8, Glucose 132 H, Calcium 9.2, Troponin I High Sens 7 06/11/23 21:00: Troponin I High Sens 9 06/12/23 00:32: Troponin I High Sens 11 06/12/23 02:07: WBC 8.5, RBC 5.16, Hgb 15.1, Hct 45.9, MCV 89.0, MCH 29.3, MCHC 32.9, RDW Std Deviation 44.2 H, RDW Coeff of Liss 13.6, Plt Count 127 L, MPV 12.3 H, Immature Gran % (Auto) 0.200, Neut % (Auto) 65.5, Lymph % (Auto) 23.4, [place] % (Auto) 9.3, Eos % (Auto) 1.2, Baso % (Auto) 0.4, Absolute Neuts (auto) 5.5, Absolute Lymphs (auto) 1.98, Nucleated RBC % 0, Sodium 144, Potassium 3.8, Chloride 114 H, Carbon Dioxide 23.0, Anion Gap 7, BUN 18, Creatinine 1.16, Estim Creat Clear Calc 68.52, Est GFR (MDRD) Af Amer 80, Est GFR (MDRD) Non-Af 66, BUN/Creatinine Ratio 15.5, Glucose 139 H, Calcium 8.6, B-Natriuretic Peptide 50.4 Cardiology Labs/Tests 06/11/23 18:39: WBC 9.4, RBC 5.48, Hgb 15.9, Hct 48.8, MCV 89.1, MCH 29.0, MCHC 32.6, Plt Count 154, MPV 12.9 H, Immature Gran % (Auto) 0.400, Neut % (Auto) 67.4, Lymph % (Auto) 22.1, [place] % (Auto) 8.6, Eos % (Auto) 1.1, Baso % (Auto) 0.4, Absolute Neuts (auto) 6.3, Nucleated RBC % 0, Sodium 142, Potassium 3.8, Chloride 109 H, Carbon Dioxide 28.0, Anion Gap 5, BUN 20 H, Creatinine 1.35 H, Est GFR (MDRD) Af Amer 67, Est GFR (MDRD) Non-Af 55 L, BUN/Creatinine Ratio 14.8, Glucose 132 H, Calcium 9.2 06/12/23 02:07: WBC 8.5, RBC 5.16, Hgb 15.1, Hct 45.9, MCV 89.0, MCH 29.3, MCHC 32.9, Plt Count 127 L, MPV 12.3 H, Immature Gran % (Auto) 0.200, Neut % (Auto) 65.5, Lymph % (Auto) 23.4, [place] % (Auto) 9.3, Eos % (Auto) 1.2, Baso % (Auto) 0.4, Absolute Neuts (auto) 5.5, Nucleated RBC % 0, Sodium 144, Potassium 3.8, Chloride 114 H, Carbon Dioxide 23.0, Anion Gap 7, BUN 18, Creatinine 1.16, Est GFR (MDRD) Af Amer 80, Est GFR (MDRD) Non-Af 66, BUN/Creatinine Ratio 15.5, Glucose 139 H, Calcium 8.6, B-Natriuretic Peptide 50.4 Rhythm: EKG: ECHO: Stress Test: Cardiac Cath: PCI: CT Surgery: Holter monitor: EPS: PPM: CXR: Chest CT Scan: Radiography Diagnostic Testing: Radiology Impression Chest X-Ray 06/11/23 19:23 IMPRESSION: No acute pulmonary process Electronically Signed: Paul Salmeron MD at 19:36 EST , Echocardiogram 06/12/23 05:55 Interpretation Summary Moderately dilated left ventricle. The estimated ejection fraction is 35 %. Moderately severe segmental systolic dysfunction (see wall motion). Contrast injection was performed. Ordering Physician: Marleny Garcia Referring Physician: Mario Seo Performed By: Sesar Sparrow RCS
[2023-06-12 14:41] VITALS: BP 102/61; PULSE 60; RESP 14; TEMP 36.7; O2SAT 98
[2023-06-12] MEDS: Carvedilol 6.25 MG Tablet PO (17:10)
[2023-06-12] MEDS: Atorvastatin Calcium 80 MG Tablet PO (17:10)
[2023-06-12] MEDS: SACUBITRIL/VALSARTAN 49-51 MG TABLET 1 EACH PO (17:10)
--- NOTE | 2023-06-12 18:10 | CASEMGMT ---
LALO MARTÍNEZ NOTE: Intro role of CM to patient and KWAN form explained re: Observation status for treatment of chest pain.? Explained hospitalization will be paid per?his insurance policy for Outpatient billing?and condition will continue to be evaluated for Inpt necessity. Also let pt know that [facility] sends paper in the billing packet with their phone number if questions arise. Pt verbalizes understanding and does not have further questions. ?Form signed, copy made and placed in chart, and original given to pt. Juan SANTOS RN CM
[2023-06-12 20:19] VITALS: BP 105/66; PULSE 60; RESP 16; TEMP 36.6; O2SAT 97
[2023-06-12 20:20] VITALS: BP 105/66; PULSE 60; RESP 16; TEMP 36.6; O2SAT 97
[2023-06-13 02:08] VITALS: BMI 33.7
[2023-06-13 03:18] VITALS: BP 124/61; PULSE 60; RESP 16; TEMP 36.7; O2SAT 97
[2023-06-13 03:23] VITALS: BP 124/61; PULSE 60; RESP 16; TEMP 36.7; O2SAT 97
[2023-06-13] MEDS: 0.9% Saline Lock 10 ML Syringe IV (03:27)
[2023-06-13 06:53] LABS: Absolute Lymphocyte Count 1.49 X10^3/uL (0.83-4.51); Basophil# 0.02 X10^3/uL; Basophil% 0.3 % (0-1); Eosinophil# 0.11 X10^3/uL; Eosinophils% 1.5 % (0-5); Hematocrit 45.7 % (40-54); Hemoglobin 14.8 g/dL (13.0-16.5); Lymphocyte # 1.49 X10^3/ul (0.83-4.51); Lymphocyte % 20.6 % (19-41); Mean Corp Hgb Conc 32.4 g/dL (32-36); Mean Corpuscular Hgb 29.1 pg (27.0-32.0); Mean Platelet Vol. 12.8 fl (6.2-12.0); Monocyte# 0.63 X10^3/uL; Monocyte% 8.7 % (0-10); NRBC Flagged by Analyzer 0 % (0-5); Neutrophil # 4.95 X10^3/uL (2.7-7.7); Neutrophil % 68.5 % (47-70); Platelet Count 117 K/mm3 (150-450); RBC Distribution Width CV 13.4 % (11.6-14.6); RBC Distribution Width SD 44.4 fl (35.1-43.9); Red Blood Count 5.08 M/mm3 (4.6-6.2); White Blood Count 7.2 K/mm3 (4.4-11.0)
--- NOTE | 2023-06-13 07:39 | PN.HOSP_ITS ---
Reason for Visit Reason for Visit: Diagnoses Chest pain, unspecified (06/11/23) Subjective Subjective Patient seen currently denies chest pain. Plan is for patient to undergo left heart catheterization in a.m. Objective Data Objective Data Vital Signs: Vital Signs Temp Pulse Resp BP Pulse Ox O2 Del Method 98.0 F 60 16 124/61 H 97 Room Air 06/13/23 03:23 06/13/23 03:23 06/13/23 03:23 06/13/23 03:23 06/13/23 03:23 06/13/23 03:23 Oxygen Delivery Method Room Air Weight: 100.7 kg Body Mass Index (BMI) 33.7 Intake & Output: Intake and Output for Last 24 Hours 06/11/23 06/12/23 06/13/23 23:59 23:59 23:59 Intake Total 1866.67 / 1866.67 Balance 1866.67 / 1866.67 Lab / Micro Data 06/13/23 06:15 06/12/23 02:07 Labs: Laboratory Results - last 24 hr 06/13/23 06:15: WBC 7.2, RBC 5.08, Hgb 14.8, Hct 45.7, MCV 90.0, MCH 29.1, MCHC 32.4, RDW Std Deviation 44.4 H, RDW Coeff of Liss 13.4, Plt Count 117 L, MPV 12.8 H, Immature Gran % (Auto) 0.400, Neut % (Auto) 68.5, Lymph % (Auto) 20.6, [place] % (Auto) 8.7, Eos % (Auto) 1.5, Baso % (Auto) 0.3, Absolute Neuts (auto) 5.0, Absolute Lymphs (auto) 1.49, Nucleated RBC % 0 Radiography Diagnostic Testing: Radiology Impression Echocardiogram 06/12/23 05:55 Interpretation Summary Moderately dilated left ventricle. The estimated ejection fraction is 35 %. Moderately severe segmental systolic dysfunction (see wall motion). Contrast injection was performed. Ordering Physician: Marleny Garcia Referring Physician: Mario Seo Performed By: Sesar Sparrow RCS Physical Exam Narrative GENERAL: cooperative HEENT: Atraumatic; normocephalic EYES; Anicteric, Normal Conjunctiva NECK; supple, normal thyroid, RESPIRATORY: Diminished to auscultation CARDIOVASCULAR: Regular S1 S2, GI: soft, normoactive bowel sounds, : No Renal angle tenderness; EXTREMITIES: No edema, no clubbing, MUSCULOSKELETAL: no muscle wasting NEURO: Awake; no lateralizing signs. SKIN: No Rash PSYCH; Flat affect Assessment & Plan Assessment/Plan (1) Chest pain: PLAN: Plan Patient is a 72-year-old gentleman with past medical history seen for coronary artery disease with previous PCI with stent who presented with exertional chest pain. An assessment of unstable angina made admitted to monitored bed treatment subsequently initiated per protocol with consultation placed to cardiology . Unstable angina ? In a patient with known coronary artery disease admitted to a monitored bed treatment initiated per protocol consultation placed to cardiology plans for patient to undergo left heart catheterization with intervention if warranted on 06/14/2023 ? 06/13/2023;Patient seen currently denies chest pain. Plan is for patient to undergo left heart catheterization in a.m. 2. Coronary artery disease ? Patient is on guideline directed medical therapy 3. Chronic congestive heart failure with reduced ejection fraction ? Patient is on Jardiance, Entresto and furosemide as well as Aldactone continue 4. Ischemic cardiomyopathy with history of arrhythmias ? Status post AICD placement 5. Class I obesity with BMI of 34.1 ? Complicating care weight loss advised 6. Hypertension - Blood pressure controlled, home medications continued with dose adjustment as needed 7. Dyslipidemia -Patient is on statin therapy, continued at home dose 8. DVT prophylaxis - On enoxaparin Time spent in the patient's overall evaluation,decision-making process, review of diagnostic data, adjustment of management, discussion with other providers, nursing nursing and ancillary staff involved in patient's care documentation, 35 minutes Charges/Coding Visit Charges Inpatient E&M: 37616 Subs Hosp L2
[2023-06-13 09:05] VITALS: BP 110/71; PULSE 59; RESP 16; TEMP 36.3; O2SAT 97
[2023-06-13] MEDS: Enoxaparin 40 MG/0.4 ML Syringe SC (09:07)
[2023-06-13] MEDS: Potassium Chloride Oral Tablet 10 MEQ 5 MEQ PO (09:07)
[2023-06-13] MEDS: SACUBITRIL/VALSARTAN 49-51 MG TABLET 1 EACH PO ×2 (09:08→21:19)
[2023-06-13] MEDS: Clopidogrel Bisulfate 75 MG Tablet PO (09:09)
[2023-06-13] MEDS: Isosorbide Mononitrate 30 MG Tablet PO (09:09)
[2023-06-13] MEDS: Aspirin E.C. 81 MG Tablet PO (09:09)
[2023-06-13] MEDS: Empagliflozin 10 MG Tablet PO (09:09)
[2023-06-13] MEDS: Carvedilol 6.25 MG Tablet PO ×2 (09:10→17:55)
[2023-06-13] MEDS: Spironolactone 25 MG Tablet 12.5 MG PO (09:11)
--- NOTE | 2023-06-13 09:51 | PN.CARD_ITS ---
Subjective Subjective Patient seen and evaluated. Appears to be stable doing well otherwise. Objective Data Vital Signs: Vital Signs Temp Pulse Resp BP Pulse Ox O2 Del Method 97.4 F L 59 L 16 110/71 97 Room Air 06/13/23 09:05 06/13/23 09:05 06/13/23 09:05 06/13/23 09:05 06/13/23 09:05 06/13/23 09:29 Oxygen Delivery Method Room Air Weight: 222 lb 0.088 oz Body Mass Index (BMI) 33.7 Intake & Output: Intake and Output for Last 24 Hours 06/11/23 06/12/23 06/13/23 23:59 23:59 23:59 Intake Total 1866.67 / 1866.67 Balance 1866.67 / 1866.67 Lab / Micro Data 06/13/23 06:15 06/12/23 02:07 Labs: Laboratory Results - last 24 hr 06/13/23 06:15: WBC 7.2, RBC 5.08, Hgb 14.8, Hct 45.7, MCV 90.0, MCH 29.1, MCHC 32.4, RDW Std Deviation 44.4 H, RDW Coeff of Liss 13.4, Plt Count 117 L, MPV 12.8 H, Immature Gran % (Auto) 0.400, Neut % (Auto) 68.5, Lymph % (Auto) 20.6, [place] % (Auto) 8.7, Eos % (Auto) 1.5, Baso % (Auto) 0.3, Absolute Neuts (auto) 5.0, Absolute Lymphs (auto) 1.49, Nucleated RBC % 0 Cardiology Labs/Tests 06/13/23 06:15: WBC 7.2, RBC 5.08, Hgb 14.8, Hct 45.7, MCV 90.0, MCH 29.1, MCHC 32.4, Plt Count 117 L, MPV 12.8 H, Immature Gran % (Auto) 0.400, Neut % (Auto) 68.5, Lymph % (Auto) 20.6, [place] % (Auto) 8.7, Eos % (Auto) 1.5, Baso % (Auto) 0.3, Absolute Neuts (auto) 5.0, Nucleated RBC % 0 Rhythm: EKG: ECHO: Stress Test: Cardiac Cath: PCI: CT Surgery: Holter monitor: EPS: PPM: CXR: Chest CT Scan: Radiography Diagnostic Testing: Radiology Impression Echocardiogram 06/12/23 05:55 Interpretation Summary Moderately dilated left ventricle. The estimated ejection fraction is 35 %. Moderately severe segmental systolic dysfunction (see wall motion). Contrast injection was performed. Ordering Physician: Marleny Garcia Referring Physician: Mario Seo Performed By: Sesar Sparrow RCS Physical Exam Const alert, oriented x3 and no apparent distress General Appearance: cooperative HEENT hearing grossly normal bilaterally Head and Scalp: atraumatic Eyes EOMs intact bilaterally Neck General: normal visual inspection Chest inspection of chest normal and palpation of chest normal Resp normal respiratory effort Auscultation: clear to auscultation bilaterally Cardio regular rate, regular rhythm, S1 normal heart sound and S2 normal heart sound Jugular Venous Distention: JVD GI normal to inspection, nondistended, normoactive bowel sounds Extremity normal capillary refill and no pedal edema Peripheral Pulses: Yes pulses 2+ throughout and femoral pulses present Skin no rashes or lesions noted Neuro oriented x3 and CN's II-XII intact bilaterally Psych Appearance: grossly normal and appropriate Assessment & Plan Assessment/Plan (1) Exertional dyspnea: PLAN: He does present with exertional dyspnea. This could very well be an anginal equivalent. He was seen by his primary health promotion educator who suggested pulmonary evaluation and function tests and to follow-up echo was negative with a cardiac catheterization. He now presents with the symptomatology and my recommendation is to proceed with a left heart catheterization. Risk benefits alternatives of been explained to him he understands and agrees to proceed. (2) History of CAD (coronary artery disease): PLAN: He does have evidence of coronary artery disease as noted above. The plan will be to pursue a left heart catheterization. (3) Ischemic cardiomyopathy: PLAN: He does have evidence of ischemic cardiomyopathy. An echocardiogram performed this morning demonstrated segmental wall motion abnormalities involving the anterior wall and apex which were akinetic estimated ejection fraction of 35%. He currently is on guideline directed medical therapy with beta-danae, ARNI, spironolactone, and these can be titrated on as appropriate. He is also on an SGLT2 inhibitor. (4) ICD (implantable cardioverter-defibrillator) in place: PLAN: He does have an implantable defibrillator in place. This has been interrogated through our device clinic and is noted to be functioning well. (5) Essential (primary) hypertension: PLAN: Blood pressure is under good control at this time I would not recommend that we make any changes. (6) Dyslipidemia: PLAN: He does have a history of dyslipidemia. He will remain on high intensity statin. Thank you for allowing me to participate in the care of your patient. Please don't hesitate to call if any issues arise.
[2023-06-13 10:07] LABS: Anion Gap 5 (5-15); BUN 16 mg/dL (7-18); BUN/Creat Ratio 14.7 RATIO (10-20); Chloride 114 mmol/L (98-107); Creatinine, Serum 1.09 mg/dL (0.70-1.30); EST Glomerular Filtration Rate 71 mL/min (>60); Est Glom Filt Rate - Afr Amer 86 mL/min (>60); Estimated Creatinine Clearance 72.53 ml/min; Glucose 123 mg/dL (74-106); Magnesium 2.5 mg/dL (1.6-2.6); Phosphorus 2.7 mg/dL (2.5-4.9); Potassium 4.2 mmol/L (3.5-5.1); Sodium Level 142 mmol/L (136-145)
[2023-06-13 15:00] VITALS: BP 101/60; PULSE 60; RESP 16; TEMP 36.6; O2SAT 97
[2023-06-13 20:27] VITALS: BP 124/91; PULSE 61; RESP 16; TEMP 36.7; O2SAT 97
[2023-06-13 20:47] VITALS: O2SAT 97
[2023-06-13] MEDS: Atorvastatin Calcium 80 MG Tablet PO (21:19)
[2023-06-14] VITALS (11 sets, daily range): BP systolic 82–124; BP diastolic 53–70; PULSE 60; RESP 18; TEMP 36.6–36.7; O2SAT 93–99; BMI 33.7
[2023-06-14] MEDS: 0.9% Saline Lock 10 ML Syringe IV ×2 (02:30→10:24)
[2023-06-14] MEDS: Clopidogrel Bisulfate 75 MG Tablet PO (05:48)
[2023-06-14] MEDS: Aspirin E.C. 81 MG Tablet PO (05:48)
[2023-06-14] MEDS: Isosorbide Mononitrate 30 MG Tablet PO (05:49)
[2023-06-14] MEDS: SACUBITRIL/VALSARTAN 49-51 MG TABLET 1 EACH PO (05:49)
[2023-06-14] MEDS: Carvedilol 6.25 MG Tablet PO (05:49)
--- NOTE | 2023-06-14 05:55 | EKG12_ITS ---
Test Reason : PRE OP Blood Pressure : / mmHG Vent. Rate : 060 BPM Atrial Rate : 060 BPM P-R Int : 266 ms QRS Dur : 100 ms QT Int : 392 ms P-R-T Axes : 000 023 084 degrees QTc Int : 392 ms Atrial-paced rhythm with prolonged AV conduction Anterior infarct , age undetermined Abnormal ECG When compared with ECG of 12-JUN-2023 06:38, MANUAL COMPARISON REQUIRED, DATA IS UNCONFIRMED Confirmed by KARRI STEWARD, CARMELITA ([id number]), newspaper editor HERRERA DAN ([id number]) on 06/14/2023 2:03:20 PM Referred By: Confirmed By:CARMELITA ZENG MD
[2023-06-14 06:03] LABS: Absolute Lymphocyte Count 1.83 X10^3/uL (0.83-4.51); Basophil# 0.03 X10^3/uL; Basophil% 0.3 % (0-1); Eosinophil# 0.15 X10^3/uL; Eosinophils% 1.7 % (0-5); Hematocrit 46.2 % (40-54); Hemoglobin 14.9 g/dL (13.0-16.5); Lymphocyte # 1.83 X10^3/ul (0.83-4.51); Lymphocyte % 20.8 % (19-41); Mean Corp Hgb Conc 32.3 g/dL (32-36); Mean Corpuscular Hgb 28.9 pg (27.0-32.0); Mean Corpuscular Volume 89.7 fL (80-94); Monocyte# 0.73 X10^3/uL; Monocyte% 8.3 % (0-10); NRBC Flagged by Analyzer 0 % (0-5); Neutrophil # 6.01 X10^3/uL (2.7-7.7); Neutrophil % 68.3 % (47-70); Platelet Count 122 K/mm3 (150-450); RBC Distribution Width CV 13.5 % (11.6-14.6); RBC Distribution Width SD 44.3 fl (35.1-43.9); Red Blood Count 5.15 M/mm3 (4.6-6.2); White Blood Count 8.8 K/mm3 (4.4-11.0)
[2023-06-14 06:33] LABS: Anion Gap 6 (5-15); BUN 19 mg/dL (7-18); Chloride 111 mmol/L (98-107); Creatinine, Serum 1.12 mg/dL (0.70-1.30); EST Glomerular Filtration Rate 69 mL/min (>60); Est Glom Filt Rate - Afr Amer 83 mL/min (>60); Estimated Creatinine Clearance 70.52 ml/min; Glucose 126 mg/dL (74-106); Potassium 3.9 mmol/L (3.5-5.1); Sodium Level 142 mmol/L (136-145)
--- NOTE | 2023-06-14 08:16 | NURSING ---
Attempted to call report to the general laborer. Nurse states they are in the middle of a case, wait to give report.
--- NOTE | 2023-06-14 09:29 | PN.CARD_ITS ---
Subjective Subjective Seen and evaluated. Appears to be doing well. Underwent cardiac catheterization today. Objective Data Vital Signs: Vital Signs Temp Pulse Resp BP Pulse Ox O2 Del Method 97.9 F 60 18 118/65 99 Room Air 06/14/23 08:08 06/14/23 08:08 06/14/23 08:08 06/14/23 08:08 06/14/23 08:08 06/14/23 08:08 Oxygen Delivery Method Room Air Weight: 221 lb 9.033 oz Body Mass Index (BMI) 33.7 Intake & Output: Intake and Output for Last 24 Hours 06/12/23 06/13/23 06/14/23 23:59 23:59 23:59 Intake Total 1866.67 / 1866.67 Balance 1866.67 / 1866.67 Lab / Micro Data 06/14/23 05:05 06/14/23 05:05 Labs: Laboratory Results - last 24 hr 06/13/23 06:15: Sodium 142, Potassium 4.2, Chloride 114 H, Carbon Dioxide 23.0, Anion Gap 5, BUN 16, Creatinine 1.09, Estim Creat Clear Calc 72.53, Est GFR (MDRD) Af Amer 86, Est GFR (MDRD) Non-Af 71, BUN/Creatinine Ratio 14.7, Glucose 123 H, Calcium 9.0, Phosphorus 2.7, Magnesium 2.5 06/14/23 05:05: WBC 8.8, RBC 5.15, Hgb 14.9, Hct 46.2, MCV 89.7, MCH 28.9, MCHC 32.3, RDW Std Deviation 44.3 H, RDW Coeff of Liss 13.5, Plt Count 122 L, MPV 13.0 H, Immature Gran % (Auto) 0.600, Neut % (Auto) 68.3, Lymph % (Auto) 20.8, [place] % (Auto) 8.3, Eos % (Auto) 1.7, Baso % (Auto) 0.3, Absolute Neuts (auto) 6.0, Absolute Lymphs (auto) 1.83, Nucleated RBC % 0, Sodium 142, Potassium 3.9, Chloride 111 H, Carbon Dioxide 25.0, Anion Gap 6, BUN 19 H, Creatinine 1.12, Estim Creat Clear Calc 70.52, Est GFR (MDRD) Af Amer 83, Est GFR (MDRD) Non-Af 69, BUN/Creatinine Ratio 17.0, Glucose 126 H, Calcium 9.0 Cardiology Labs/Tests 06/13/23 06:15: Sodium 142, Potassium 4.2, Chloride 114 H, Carbon Dioxide 23.0, Anion Gap 5, BUN 16, Creatinine 1.09, Est GFR (MDRD) Af Amer 86, Est GFR (MDRD) Non-Af 71, BUN/Creatinine Ratio 14.7, Glucose 123 H, Calcium 9.0, Phosphorus 2.7, Magnesium 2.5 06/14/23 05:05: WBC 8.8, RBC 5.15, Hgb 14.9, Hct 46.2, MCV 89.7, MCH 28.9, MCHC 32.3, Plt Count 122 L, MPV 13.0 H, Immature Gran % (Auto) 0.600, Neut % (Auto) 68.3, Lymph % (Auto) 20.8, [place] % (Auto) 8.3, Eos % (Auto) 1.7, Baso % (Auto) 0.3, Absolute Neuts (auto) 6.0, Nucleated RBC % 0, Sodium 142, Potassium 3.9, Chloride 111 H, Carbon Dioxide 25.0, Anion Gap 6, BUN 19 H, Creatinine 1.12, Est GFR (MDRD) Af Amer 83, Est GFR (MDRD) Non-Af 69, BUN/Creatinine Ratio 17.0, Glucose 126 H, Calcium 9.0 Rhythm: EKG: ECHO: Stress Test: Cardiac Cath: PCI: CT Surgery: Holter monitor: EPS: PPM: CXR: Chest CT Scan: Physical Exam Const alert, oriented x3 and no apparent distress General Appearance: cooperative HEENT hearing grossly normal bilaterally Head and Scalp: atraumatic Eyes EOMs intact bilaterally Neck General: normal visual inspection Chest inspection of chest normal and palpation of chest normal Resp normal respiratory effort Auscultation: clear to auscultation bilaterally Cardio regular rate, regular rhythm, S1 normal heart sound and S2 normal heart sound Jugular Venous Distention: JVD GI normal to inspection, nondistended, normoactive bowel sounds Extremity normal capillary refill and no pedal edema Peripheral Pulses: Yes pulses 2+ throughout and femoral pulses present Skin no rashes or lesions noted Neuro oriented x3 and CN's II-XII intact bilaterally Psych Appearance: grossly normal and appropriate Assessment & Plan Assessment/Plan (1) Exertional dyspnea: PLAN: He does present with exertional dyspnea. This could very well be an anginal equivalent. He underwent a cardiac catheterization today which demonstrated patency of his stents. I would recommend that we continue to manage him with medical therapy. He will follow-up as an outpatient. (2) History of CAD (coronary artery disease): PLAN: He does have evidence of coronary artery disease as noted above. (3) Ischemic cardiomyopathy: PLAN: He does have evidence of ischemic cardiomyopathy. An echocardiogram performed this morning demonstrated segmental wall motion abnormalities in volving the anterior wall and apex which were akinetic estimated ejection fraction of 35%. He currently is on guideline directed medical therapy with beta-danae, ARNI, spironolactone, and these can be titrated on as appropriate. He is also on an SGLT2 inhibitor. (4) ICD (implantable cardioverter-defibrillator) in place: PLAN: He does have an implantable defibrillator in place. This has been interrogated through our device clinic and is noted to be functioning well. (5) Essential (primary) hypertension: PLAN: Blood pressure is under good control at this time I would not recommend that we make any changes. (6) Dyslipidemia: PLAN: He does have a history of dyslipidemia. He will remain on high intensity statin. Thank you for allowing me to participate in the care of your patient. Please don't hesitate to call if any issues arise.
--- NOTE | 2023-06-14 09:47 | CL.D_ITS ---
Patient Name: AUDREY CHAVARRIA Study Date: 06/14/2023 Performing: Romulo Marquez MD Ht: 68 inches 172.72 cm : 1950 Wt: 221.56 lbs 100.5 kg Age: 72 Gender: male BSA: 2.13 PROCEDURE(S) PERFORMED [id number])[facility] CLINICAL PROFILE AND INDICATIONS Indications: Suspected CAD Heart Failure: NYHA Class: 3, Newly Diagnosed: No, Heart Failure Type: Systolic Stress/Imaging Stress/Image Study Performed: No CAD Presentations: Symptom unlikely to be ischemic. CONCLUSIONS Coronary disease with previously placed stent in the left anterior descending artery which is patent and patent stents noted in the first obtuse marginal branch RECOMMENDATIONS Medical therapy DESCRIPTION OF PROCEDURE The patient arrived to the procedure lab. The risks and benefits of the procedure as well as a full description of our services here and current unavailability of surgical backup were fully explained to the patient and/or their significant other prior to the catheterization. The Timeout was completed, verifying the correct patient and procedure. The patient's procedural site was prepped and draped in the usual fashion. Local anesthetic was given subcutaneously to right radial region with Lidocaine 2%. Using a modified Seldinger technique, arterial access was obtained via the right radial artery, a 6Fr sheath was inserted. Right Coronary Artery selective angiography was then performed in multiple views using a 5 Fr. 4.0 [place] catheter. Left Coronary Artery selective angiography was performed in multiple views using a 5 Fr. 4.0 [place] catheter.The arterial sheath was pulled and a TR Band was applied for hemostasis. 10cc air. CORONARY ANGIOGRAPHY DOMINANCE: Left Dominant LEFT HEART ASSESSMENT Left Ventricular Ejection Fraction: by Echo 35 % Anterior Akinesis. Apical Akinesis Depressed Left Ventricular systolic function LEFT MAIN: Angiographically normal LEFT ANTERIOR DESCENDING ARTERY: Previously placed stents in the Proximal to mid LAD vessel is noted to be patent. The LAD also has stents which are noted to be patent CIRCUMFLEX ARTERY: This vessel is a dominant vessel. There 3 obtuse marginal branches and a posterior descending artery which has mild disease. No significant stenosis is noted within any of this vessel.The first obtuse marginal branch has a stent which is patent RIGHT CORONARY ARTERY: Non-obstructive COMPLICATIONS No Complications PROCEDURE MEDICATIONS Fentanyl 50 mcg IV Versed 1 mg IV Oxygen: 2 L/min via nasal cannula Heparin given IA 06/14/2023 09:02:26 SUMMARY OF HEMODYNAMIC DATA Time AIR REST ECG 08:51:59 AO 96/61 (76) SA 09:22:57 09:38:35 Signed By Romulo Marquez MD On 06/14/2023 09:46:50 Romulo Marquez MD
[2023-06-14] MEDS: Spironolactone 25 MG Tablet 12.5 MG PO (10:24)
[2023-06-14] MEDS: Furosemide 20 MG Tablet PO (10:26)
[2023-06-14] MEDS: Potassium Chloride Oral Tablet 10 MEQ 5 MEQ PO (10:26)
[2023-06-14] MEDS: Empagliflozin 10 MG Tablet PO (10:27)
--- NOTE | 2023-06-14 10:37 | CASEMGMT ---
Insurance review for hospitals In-network with?[employer] insurance if transfer is recommended is as follows:?[facility], [place], [facility], [facility], [facility], [facility], [facility] ([facility]), [facility], [facility], and . Tari Johnson, Discharge Planning Asst.
--- NOTE | 2023-06-14 14:32 | DCINST_ITS ---
Discharge Instructions Diet Discharge Diet: Low fat / Low cholesterol and 6 Cup Fluid Restriction Activity Discharge Activity: Return to Normal Activity Dressing / Incision Call your doctor if you observe: Fever of 101 or Higher, Shortness of breath, Dizziness, Fainting spells, Swelling in the ankles, Chest pain and Increased palpitations (irregular heartbeat) Follow Up Care Test Results: Test results from this visit will be discussed in further detail at your follow- up appointment, if applicable. Discharge Plan Admission Admit Date/Time: 06/11/23 21:30 Attending Provider: Velasquez Cooney Primary Care Provider: Mario Seo Consulting Providers: Romulo Marquez; Marleny Garcia; Issac Yee Discharge Orders/Prescriptions Prescriptions: Continued aspirin [Adult Low Dose Aspirin] 81 mg tablet,delayed release (DR/EC) 81 mg PO DAILY acetaminophen 500 mg capsule 500 mg PO Q6H PRN (Reason: fever or pain) nitroglycerin 0.4 mg tablet, sublingual 0.4 mg sublingual Q5M PRN (Reason: chest pain) Qty: 25 2RF Rx Instructions: do not exceed 3 doses per episode spironolactone 25 mg tablet 12.5 mg PO DAILY Qty: 45 3RF Jardiance 10 mg tablet 10 mg PO DAILY Qty: 90 3RF carvedilol [Coreg] 6.25 mg tablet 6.25 mg PO BID Qty: 180 3RF Rx Instructions: must administer with a meal/food isosorbide mononitrate 30 mg tablet extended release 24 hr 30 mg PO DAILY Qty: 90 3RF atorvastatin 80 mg tablet 80 mg PO QHS Qty: 90 3RF furosemide 20 mg tablet 20 mg PO QMWF Qty: 40 3RF clopidogrel 75 mg tablet 75 mg PO DAILY Qty: 90 3RF potassium chloride 10 mEq tablet,ER particles/crystals 5 meq PO DAILY Qty: 45 3RF Entresto 49-51 mg tablet 1 tab PO BID Qty: 180 4RF Referrals / Follow Up: Jose Isaacs MD [Med Staff - Active Staff] - Within 1 Month Mario Seo MD [Primary Care Provider] - Within 1 Week Disposition Disposition (needs filled in before D/C Order can be placed): Home, Self Care
--- NOTE | 2023-06-14 14:55 | DS.PCM_ITS ---
Providers Date of Admission: 06/11/23 Primary Care Physician: Dr. Mario Seo MD Consultations 06/12/23 06:54 Consult: Cardiology Routine Consulting Provider: Romulo Marquez Reason for Consult: angina symptoms EMERGENT Consult: No MD Notified: Yes Date Notified: 06/12/23 Time Notified: 06:55 Method of Notification: Verbal Reason For Visit: CHEST PAIN Diagnosis Discharge Diagnosis (1) Exertional dyspnea: Status: Acute Code(s): R06.09 - Other forms of dyspnea (2) History of CAD (coronary artery disease): Status: Acute Code(s): Z86.79 - Personal history of other diseases of the circulatory system (3) Ischemic cardiomyopathy: Status: Chronic Code(s): I25.5 - Ischemic cardiomyopathy (4) ICD (implantable cardioverter-defibrillator) in place: Status: Chronic Code(s): Z95.810 - Presence of automatic (implantable) cardiac defibrillator (5) Essential (primary) hypertension: Status: Acute Code(s): I10 - Essential (primary) hypertension (6) Dyslipidemia: Status: Chronic Code(s): E78.5 - Hyperlipidemia, unspecified Medications at Discharge Home Medications acetaminophen 500 mg capsule 500 mg PO Q6H PRN fever or pain 02/03/22 aspirin 81 mg tablet,delayed release (Adult Low Dose Aspirin) 81 mg PO DAILY 02/03/22 nitroglycerin 0.4 mg sublingual tablet 0.4 mg sublingual Q5M PRN chest pain #25 tabs 08/11/22 spironolactone 25 mg tablet 12.5 mg (1/2 x 25 mg) PO DAILY #45 tabs 09/01/22 empagliflozin 10 mg tablet (Jardiance) 10 mg PO DAILY #90 tabs 12/24/22 carvedilol 6.25 mg tablet (Coreg) 6.25 mg PO BID #180 tabs 02/15/23 isosorbide mononitrate 30 mg tablet,extended release 24 hr 30 mg PO DAILY #90 tabs 02/15/23 atorvastatin 80 mg tablet 80 mg PO QHS #90 tabs 03/01/23 clopidogrel 75 mg tablet 75 mg PO DAILY #90 tabs 03/16/23 furosemide 20 mg tablet 20 mg PO QMWF weight gain #40 tabs 03/16/23 potassium chloride 10 mEq tablet,extended release(part/cryst) 5 meq (1/2 x 10 mEq) PO DAILY #45 tabs 03/16/23 sacubitril 49 mg-valsartan 51 mg tablet (Entresto) 1 tab PO BID #180 tabs 04/12/23 Hospital Course Operations None Procedures 2-D Echocardiogram and Cardiac catheterization Summary of Care Provided Minutes Spent on Discharge: 35 Hospital Course: Per HPI: Patient is a 72-year-old gentleman with past medical history seen for coronary artery disease with previous PCI with stent who presented with exertional chest pain. An assessment of unstable angina made admitted to monitored bed treatment subsequently initiated per protocol with consultation placed to cardiology Hospital course: 1. Unstable angina/CAD status post stent/chronic systolic CHF/HTN/HLD? 72-year-old male presented with exertional dyspnea. He had been seen by his primary electronic scale subassembler as an outpatient prior who is recommending pulmonology evaluation followed by an echo and if the echo is normal to proceed with a heart cath however he developed the exertional dyspnea prior to all this being able to be done so he presented to the hospital. Initial echo was done on the with an EF of 35% and moderately severe segmental systolic dysfunction and moderately dilated left ventricle. Cardiac cath proceeded today on the day of discharge and was found that his coronary arteries and stents were patent and that he did not require any intervention. Cardiology recommended resuming his current medical therapy with adjustment as an outpatient. I discussed with him the plan for discharge and he expressed understanding of the risk benefits of going home and would like to go home today. He denies any chest pain or shortness of breath today. His was in the room during this discussion and also agrees with treatment plan. No changes were made to his medications from when he came in on. Physical Exam Narrative General: Alert, Oriented x3, Cooperative, No apparent distress HEENT: Atraumatic, PERRLA, EOMI, Normocephalic Oral: Moist Mucosa Neck: Supple, No JVD Lungs: Clear to auscultation, Normal air movement, No rhonchi, No wheeze, No rales Cardiovascular: Regular rate, Regular Rhythm, Normal S1, Normal S2, No murmurs Abdomen: Soft, Non Tender, Non-Distended, No Hepato-splenomegaly Extremities: No edema, Capillary Refill Less than 3 Seconds Skin: No rashes, No breakdown Musculoskeletal: No Tenderness to Palpation of Joints or Extremities Neurological: Cranial nerves II-XII grossly intact, Motor Exam 5/5 strength throughout, Sensory exam intact to light touch and pain Psych/Mental Status: Normal Affect, Appropriate Weight / BMI Weight Weight: 221 lb 9.033 oz Body Mass Index (BMI) 33.7 ABG / Lab / Microbiology Data 06/14/23 05:05 06/14/23 05:05 Laboratory: Laboratory Results - last 24 hr 06/14/23 05:05: WBC 8.8, RBC 5.15, Hgb 14.9, Hct 46.2, MCV 89.7, MCH 28.9, MCHC 32.3, RDW Std Deviation 44.3 H, RDW Coeff of Liss 13.5, Plt Count 122 L, MPV 13.0 H, Immature Gran % (Auto) 0.600, Neut % (Auto) 68.3, Lymph % (Auto) 20.8, [place] % (Auto) 8.3, Eos % (Auto) 1.7, Baso % (Auto) 0.3, Absolute Neuts (auto) 6.0, Absolute Lymphs (auto) 1.83, Nucleated RBC % 0, Sodium 142, Potassium 3.9, Chloride 111 H, Carbon Dioxide 25.0, Anion Gap 6, BUN 19 H, Creatinine 1.12, Estim Creat Clear Calc 70.52, Est GFR (MDRD) Af Amer 83, Est GFR (MDRD) Non-Af 69, BUN/Creatinine Ratio 17.0, Glucose 126 H, Calcium 9.0 D/C Instructions Discharge Diet: Low fat / Low cholesterol and 6 Cup Fluid Restriction Call your doctor if you observe: Fever of 101 or Higher, Shortness of breath, Dizziness, Fainting spells, Swelling in the ankles, Chest pain and Increased palpitations (irregular heartbeat) Meaningful Use Info Meaningful Use Diagnoses (Choose all that apply): None applicable Discharge Plan Admission Admit Date/Time: 06/11/23 21:30 Attending Provider: Velasquez Cooney Primary Care Provider: Mario Seo Consulting Providers: Romulo Marquez; Marleny Garcia; Issac Yee Discharge Orders/Prescriptions Prescriptions: Continued aspirin [Adult Low Dose Aspirin] 81 mg tablet,delayed release (DR/EC) 81 mg PO DAILY acetaminophen 500 mg capsule 500 mg PO Q6H PRN (Reason: fever or pain) nitroglycerin 0.4 mg tablet, sublingual 0.4 mg sublingual Q5M PRN (Reason: chest pain) Qty: 25 2RF Rx Instructions: do not exceed 3 doses per episode spironolactone 25 mg tablet 12.5 mg PO DAILY Qty: 45 3RF Jardiance 10 mg tablet 10 mg PO DAILY Qty: 90 3RF carvedilol [Coreg] 6.25 mg tablet 6.25 mg PO BID Qty: 180 3RF Rx Instructions: must administer with a meal/food isosorbide mononitrate 30 mg tablet extended release 24 hr 30 mg PO DAILY Qty: 90 3RF atorvastatin 80 mg tablet 80 mg PO QHS Qty: 90 3RF furosemide 20 mg tablet 20 mg PO QMWF Qty: 40 3RF clopidogrel 75 mg tablet 75 mg PO DAILY Qty: 90 3RF potassium chloride 10 mEq tablet,ER particles/crystals 5 meq PO DAILY Qty: 45 3RF Entresto 49-51 mg tablet 1 tab PO BID Qty: 180 4RF Referrals / Follow Up: Jose Isaacs MD [Med Staff - Active Staff] - Within 1 Month Mario Seo MD [Primary Care Provider] - Within 1 Week Disposition Disposition (needs filled in before D/C Order can be placed): Home, Self Care Charges/Coding Visit Charges Inpatient E&M: 39723 Disch Hosp >30min
--- NOTE | 2023-06-14 14:55 | CASEMGMT ---
Patient has order for discharge. RN CM in to discuss needs at discharge, at bedside. Patient and deny needs or help at discharge. Patient had no further questions or concerns at this time.
--- NOTE | 2023-06-14 15:00 | PHA.DC.MR.R ---
Pharmacy [place] Med Reconciliation Pharmacy Service has performed discharge medication reconciliation for this patient. The patient's discharge medication list was reviewed for discrepancies and discrepancies were resolved. Medications at Discharge Home Medications acetaminophen 500 mg capsule 500 mg PO Q6H PRN fever or pain 02/03/22 aspirin 81 mg tablet,delayed release (Adult Low Dose Aspirin) 81 mg PO DAILY 02/03/22 nitroglycerin 0.4 mg sublingual tablet 0.4 mg sublingual Q5M PRN chest pain #25 tabs 08/11/22 spironolactone 25 mg tablet 12.5 mg (1/2 x 25 mg) PO DAILY #45 tabs 09/01/22 empagliflozin 10 mg tablet (Jardiance) 10 mg PO DAILY #90 tabs 12/24/22 carvedilol 6.25 mg tablet (Coreg) 6.25 mg PO BID #180 tabs 02/15/23 isosorbide mononitrate 30 mg tablet,extended release 24 hr 30 mg PO DAILY #90 tabs 02/15/23 atorvastatin 80 mg tablet 80 mg PO QHS #90 tabs 03/01/23 clopidogrel 75 mg tablet 75 mg PO DAILY #90 tabs 03/16/23 furosemide 20 mg tablet 20 mg PO QMWF weight gain #40 tabs 03/16/23 potassium chloride 10 mEq tablet,extended release(part/cryst) 5 meq (1/2 x 10 mEq) PO DAILY #45 tabs 03/16/23 sacubitril 49 mg-valsartan 51 mg tablet (Entresto) 1 tab PO BID #180 tabs 04/12/23
== END 2023-06-14 14:34 | disposition home or self-care (01) ==
LOC: ED 21:29 → PCU 21:55
PROVIDERS: Internal Medicine; Admitting Provider Student in an Organized Health Care Education/Training Program; Emergency Provider Emergency Medicine; PCP Family Medicine; Visit Provider Family Medicine
DX: I25.110 Atherosclerotic heart disease of native coronary artery with unstable angina pectoris (principal); I11.0 Hypertensive heart disease with heart failure; I50.22 Chronic systolic (congestive) heart failure; E78.5 Hyperlipidemia, unspecified; Z95.810 Presence of automatic (implantable) cardiac defibrillator; Z95.5 Presence of coronary angioplasty implant and graft; Z87.891 Personal history of nicotine dependence; I25.5 Ischemic cardiomyopathy; Z86.16 Personal history of COVID-19; I25.2 Old myocardial infarction; Z79.899 Other long term (current) drug therapy; Z79.82 Long term (current) use of aspirin; Z79.02 Long term (current) use of antithrombotics/antiplatelets; E66.9 Obesity, unspecified; Z68.34 Body mass index [BMI] 34.0-34.9, adult
CPT/HCPCS: 36415; 71045; 80048; 83735; 83880; 84100; 84484; 85025; 93005; 93306; 93454; 96360; 96361; 96372; 99152; 99153; 99221; 99285; J7030; Q9957; Q9967; A4216; C1769; C1894; C8929; G0378

== ENCOUNTER → 2024-09-19 | Outpatient (CLI) | payer MEDICARE, SELFPAY ==
[2024-09-19 11:05] LABS: ALB/GLOB Ratio 1.8 RATIO (0.9-2.4); AST(SGOT) 29 U/L (<=37); Alanine Aminotransfer ALT/SGPT 41 U/L (<=46); Albumin, Serum 4.3 g/dL (3.4-4.8); Alkaline Phosphatase 82 U/L (40-129); Anion Gap 9 (5-15); BUN 17 mg/dL (4-19); Calcium,Total 9.4 mg/dL (7.6-11.0); Carbon Dioxide 22.6 mmol/L (21.0-32.0); Chloride 108 mmol/L (98-108); Cholesterol 94 mg/dL (<=200); EST Glomerular Filtration Rate 81 (>60); Globulin 2.4 g/dL (2.2-4.2); Glucose 176 mg/dL (70-99); High Density Lipoprotein 33 mg/dL; Low Density Lipoprotein Calc. 38 mg/dL; Potassium 4.5 mmol/L (3.3-5.1); Protein, Total 6.7 g/dL (5.9-8.4); Sodium Level 140 mmol/L (133-145); Triglycerides 117 mg/dL; Very Low Density Lipoprotein 23 mg/dL (5-40); cholesterol:hdl ratio screen 2.87
== END | disposition home or self-care (01) ==
LOC: LAB 09:21
PROVIDERS: PCP Family Medicine; Referring Provider Internal Medicine Cardiovascular Disease; Visit Provider Internal Medicine Cardiovascular Disease
DX: E78.5 Hyperlipidemia, unspecified (principal); I10 Essential (primary) hypertension
CPT/HCPCS: 36415; 80053; 80061

== ENCOUNTER → 2024-10-11 | Outpatient (CLI) | payer MEDICARE, SELFPAY ==
--- NOTE | 2024-10-11 08:43 | ECHOCS_ITS ---
Reason For Study Reason For Study: Dyspnea/SOB Procedure This was a 2D Doppler, Color Flow transthoracic echocardiogram. The study was technically difficult. Contrast injection was performed. Exam performed in department. Left Ventricle Normal size and thickness. Anterior septum severely hypokinetic. Apical akinesis. Estimated LVEF 35%. Stage I diastolic dysfunction. Right Ventricle Normal right ventricle. ICD or pacer leads identified within the right ventricle. Atria The left atrium is mildly enlarged. ICD or pacer leads identified within the right atrium. Mitral Valve Trivial mitral valve insufficiency. Tricuspid Valve Trivial tricuspid valve insufficiency. Normal pulmonary artery pressure. Aortic Valve Trisinus/trileaflet aortic valve. Pulmonic Valve The pulmonic valve is not well visualized. Trivial pulmonic valve insufficiency. Great Vessels Normal sized aortic root. Pericardium/Pleural No pericardial effusion. Medication 22 gauge I.V. with prn adaptor inserted into left arm. Diluted definity 2.5ml given slow IV push to enhance endocardial definition. MMode/2D Measurements & Calculations LVIDd: 5.4 cm IVSd: 0.87 cm Ao root diam: 3.6 cm LVIDs: 4.7 cm LVPWd: 0.75 cm RVDd: 3.3 cm FS: 12.4 % LAV(MOD-bp): 62.4 ml LVAd ap4: 48.1 cm2 SV(MOD-sp4): 57.0 ml LAV(MOD-bp) Indexed: 28.9 ml/m2 LVLd ap4: 9.8 cm SI(MOD-sp4): 26.4 ml/m2 LAV(MOD-sp2): 57.0 ml EDV(MOD-sp4): 199.1 ml LAV(MOD-sp4): 60.1 ml EDV(sp4-el): 201.1 ml LVAs ap4: 39.1 cm2 LVLs ap4: 9.0 cm ESV(MOD-sp4): 142.1 ml ESV(sp4-el): 143.8 ml EF(MOD-sp4): 28.6 % EF(sp4-el): 28.5 % SV(sp4-el): 57.3 ml LA A4 area: 21.5 cm2 LA dimension(2D): 4.3 cm RA A4 area: 13.7 cm2 TAPSE: 1.7 cm Time Measurements MV dec time: 0.30 sec Doppler Measurements & Calculations MV E max ehsan: 58.6 cm/sec Lat Peak E' Ehsan: 9.7 cm/sec Med Peak E' Ehsan: 6.8 cm/sec MV A max ehsan: 81.2 cm/sec E/E' lat: 6.1 E/E' med: 8.7 MV E/A: 0.72 MV V2 max: 100.0 cm/sec MV P1/2t max ehsan: 68.9 cm/sec Ao V2 max: 134.5 cm/sec MV max P.0 mmHg MV P1/2t: 106.0 msec Ao max P.3 mmHg MV V2 mean: 48.5 cm/sec MV dec slope: 190.4 cm/sec2 Ao V2 mean: 98.6 cm/sec MV mean P.1 mmHg MVA(P1/2t): 2.1 cm2 Ao mean P.4 mmHg MV V2 VTI: 32.3 cm Ao V2 VTI: 33.4 cm AV (velocity ratio): 0.69 LV V1 max: 95.6 cm/sec PA V2 max: 87.4 cm/sec TR max ehsan: 197.8 cm/sec LV V1 max P.7 mmHg TR max P.6 mmHg LV V1 mean P.0 mmHg LV V1 mean: 65.3 cm/sec LV V1 VTI: 23.0 cm ECHO/Echo Complete W/ Contrast Interpretation Summary Anterior septum severely hypokinetic. Apical akinesis. Estimated LVEF 35%. Stag e I diastolic dysfunction. The left atrium is mildly enlarged. The study was technically difficult. Ordering Physician: Jose Isaacs Referring Physician: Jose Isaacs Performed By: Sesar Sparrow RCS
== END | disposition home or self-care (01) ==
LOC: CVS 08:42
PROVIDERS: PCP Family Medicine; Referring Provider Internal Medicine Cardiovascular Disease; Visit Provider Internal Medicine Cardiovascular Disease
DX: R06.02 Shortness of breath (principal)
CPT/HCPCS: 93306; Q9957; A4216; C8929

== ENCOUNTER → 2024-10-13 | Outpatient (CLI) | payer MEDICARE, SELFPAY | END | disposition home or self-care (01) | LOC: PSN 10:29 | PROVIDERS: PCP Family Medicine; Referring Provider Nurse Practitioner Acute Care; Visit Provider Nurse Practitioner Acute Care | DX: R06.09 Other forms of dyspnea (principal) | CPT/HCPCS: 94060; 94726; 94729 ==

== ENCOUNTER → 2024-10-19 | Outpatient (CLI) | payer MEDICARE, SELFPAY ==
[2024-10-19 12:30] VITALS: PULSE 65; PULSE 70; PULSE 86; PULSE 88; PULSE 89; PULSE 90; PULSE 91; O2SAT 93; O2SAT 96; O2SAT 97; O2SAT 98; O2SAT 99
--- NOTE | 2024-10-24 12:30 | PCM.PSN.6M ---
PSN 6 Minute Walk Test 6 Minute Walk Test 6 Minute Walk Test: 6 Minute Walk Test PSN:6-Minute Walk Test Start: 10/19/24 12:45 Freq: Status: Active Protocol: [id number] Document 10/19/24 12:30 AEH (Rec: 10/19/24 12:49 AEH [id number]) 6 Minute Walk Test Date Performed 10/19/24 Time Performed 12:30 Height 5 ft 8 in Weight: 220 lb Weight in Pounds 220.[address]: Romaine Assistive device None used: Pre-test Oxygen Delivery Room Air Method Pulse Ox (%) 97 Pulse Rate (60-100 65 beats/min) Dyspnea Jaime Scale ( 0.5 0-10) Exertion Jaime Scale 6 (6-20) 1st minute Oxygen Delivery Room Air Method Pulse Ox (%) 99 Pulse Rate (60-100 86 beats/min) 2nd minute Oxygen Delivery Room Air Method Pulse Ox (%) 96 Pulse Rate (60-100 89 beats/min) 3rd minute Oxygen Delivery Room Air Method Pulse Ox (%) 93 Pulse Rate (60-100 90 beats/min) 4th minute Oxygen Delivery Room Air Method Pulse Ox (%) 97 Pulse Rate (60-100 91 beats/min) 5th minute Oxygen Delivery Room Air Method Pulse Ox (%) 98 Pulse Rate (60-100 91 beats/min) 6th minute Oxygen Delivery Room Air Method Pulse Ox (%) 96 Pulse Rate (60-100 88 beats/min) Dyspnea Jaime Scale ( 1 0-10) Exertion Jaime Scale 9 (6-20) Post-test Oxygen Delivery Room Air Method Pulse Ox (%) 98 Pulse Rate (60-100 70 beats/min) Full Laps Walked 18 Partial Lap, Number 22 of Tiles Walked Total Distance 1084 Walked (ft) Interpretation Interpretation: The patient ambulated 1084 feet over the course of 6 minutes beginning on room air without assistive devices. Pretesting oxygen saturation was noted to be 97% on room air. With ambulation, the bessie oxygen saturation was 93%. There was no significant exertional oxygen desaturation. Recommendations Recommendations: There is no indication for the use of supplemental oxygen at this time.
== END | disposition home or self-care (01) ==
LOC: PSN 12:23
PROVIDERS: PCP Family Medicine; Referring Provider Nurse Practitioner Acute Care; Visit Provider Nurse Practitioner Acute Care
DX: R06.09 Other forms of dyspnea (principal)
CPT/HCPCS: 94618